=== PATIENT | female | born 1985 | race Caucasian/White ===

== ENCOUNTER 2016-09-25 11:24 | Emergency (ER) | payer OTHER ==
[2016-09-25 12:23] VITALS: TEMP 98.9
--- NOTE | 2016-09-25 12:25 | ED ---
General Adult HPI - General Chief complaint: Wound/Laceration Stated complaint: FALL, RIGHT HAND INJURY Time Seen by Provider: 09/25/16 12:12 Source: patient, RN notes reviewed Mode of arrival: ambulatory Limitations: no limitations - History of Present Illness Initial comments: Patient 31-year-old female who presents emergency room today with chief complaint of a fall that occurred earlier this morning. States she [place] jabbed into the webspace between the fourth and fifth digit. Sick cause laceration. States tetanus is up-to-date. She does admit to pain locally to the area and pain with certain movements of the fifth digit. She denies any other complaints or symptoms. Patient denies any recent fever, chills, shortness of breath, chest pain, back pain, abdominal pain, nausea or vomiting, numbness or tingling, dysuria or hematuria, constipation or diarrhea, headaches or visual changes, or any other complaints. - Related Data Home Medications Medication Instructions Recorded Confirmed Albuterol Nebulized [Ventolin 2.5 mg INHALATION RT-QID PRN 04/08/14 11/26/15 Nebulized] Budesonide-Formot 160-4.5 Mcg 2 puff INHALATION RT-BID 04/08/14 11/26/15 [Symbicort 160-4.5 Mcg Inhaler] Montelukast [Singulair] 10 mg PO DAILY 04/08/14 11/26/15 Omalizumab [Xolair] 300 mg SQ Q14D 04/08/14 11/26/15 Theophylline 12 Hour [Ajit-Dur] 200 mg PO BID 04/08/14 11/26/15 Albuterol Sulfate [Ventolin HFA] 1 - 2 puff INHALATION RT-Q6H PRN 04/09/1411/25 predniSONE 10 mg PO DAILY 03/27/15 11/26/15 Budesonide [Pulmicort] 2 hour INHALATION BID 11/26/15 11/26/15 Tiotropium [place] [Spiriva] 1 puff INHALATION DAILY 11/26/15 11/26/15 Previous Rx's Medication Instructions Recorded predniSONE 60 mg PO DAILY 5 Days 11/26/15 Cephalexin [Keflex] 500 mg PO Q12HR 5 Days 09/25/16 Allergies Allergy/AdvReac Type Severity Reaction Status Date / Time oxycodone HCl [From Percocet] AdvReac Mild Rapid Verified 09/25/16 13:36 Heart Rate Review of Systems ROS Statement: Those systems with pertinent positive or pertinent negative responses have been documented in the HPI. ROS Other: All systems not noted in ROS Statement are negative. Past Medical History Past Medical History: Asthma Additional Past Medical History / Comment(s): right ankle: twisted ankle 7 yrs ago, still hurting, sees Dr Gonzalez, needs physical therapy for ankle. Asthma since age 15 yrs. Started Xolair may 2013. OB history: she has had 1 and 1 History of Any Multi-Drug Resistant Organisms: None Reported Past Surgical History: Section Additional Past Surgical History / Comment(s): ovarian surgery Additional Past Anesthesia/Blood Transfusion Reaction / Comment(s): Back has been sore since her C-scetion, states from the spinal she had. Past Psychological History: No Psychological Hx Reported Smoking Status: Never smoker Past Alcohol Use History: None Reported Past Drug Use History: None Reported - Past Family History Father Family Medical History: Diabetes Mellitus Mother Family Medical History: Hypertension Additional Family Medical History / Comment(s): Asthma: cousins, aunts, neices, grandmother at 46yr of asthma. General Exam - General Exam Comments Initial Comments: General: The patient is awake and alert, in no distress, and does not appear acutely ill. Neck: The neck is supple, there is no tenderness or JVD. Cardiovascular: There is a regular rate and rhythm. No murmur, rub or gallop is appreciated. Respiratory: Lungs are clear to auscultation, respirations are non-labored, breath sounds are equal. No wheezes, stridor, rales, or rhonchi. Musculoskeletal: Shows good range of motion. Sensation intact. Pulses equal bilaterally 2+. Strength is 5/5. Neurological: A&O x 3. CN II-XII intact, There are no obvious motor or sensory deficits. Coordination appears grossly intact. Speech is normal. Skin: Patient does have a laceration in the webspace between fourth and fifth digit of the right hand. Linear laceration with no active bleeding. Approximately 1 cm. Psychiatric: Normal mood and affect. Limitations: no limitations Course Vital Signs 09/25/16 12:21 Temperature 98.9 F Pulse Rate 94 Respiratory 20 Rate Blood Pressure 124/73 O2 Sat by Pulse 99 Oximetry Procedures - Procedures Initial comment: 1 cm linear laceration in the webspace between fourth and fifth digit of the right hand.The skin was anesthetized with 1% lidocaine. The laceration was then cleansed with Betadine and irrigated with normal saline. The wound was inspected , and there was no evidence of injury to deep structures. No foreign body was noted in the wound. A total of 1 skin sutures were placed utilizing 5-0 nylon. Medical Decision Making - Medical Decision Making Patient's x-rays are negative for any acute abnormalities. Results were discussed with the patient. Patient's laceration cleaned and closed here in the emergency room. One stitch was placed to allow wound to drain as it is puncture wound. Patient will be placed on antibiotic to cover for puncture wound. Patient advised watch for any signs of infection. Advised return if any signs of infection or any other concerns. Disposition Clinical Impression: Laceration, Fall Disposition: HOME SELF-CARE Condition: Good Instructions: Laceration (ED) Additional Instructions: Please use antibiotic as prescribed watch for any signs of infection. Please return to emergency room in 7-10 days to have suture removed. Please return for any signs of infection or any other concerns. Prescriptions: Cephalexin [Keflex] 500 mg PO Q12HR 5 Days Time of Disposition: 13:47
--- NOTE | 2016-09-25 12:49 | XR ---
Bilateral hands HISTORY: Trauma and pain 3 views of both hands submitted on a total of 6 images Bone mineralization, joint spaces and alignment are maintained. Probable geode at the distal pole of the left scaphoid. IMPRESSION: No fracture or dislocation is evident.
[2016-09-25] MEDS ORDERED: IBUPROFEN 600 MG TAB PO STA (14:18)
[2016-09-25 14:31] VITALS: BP 102/57; PULSE 86; RESP 15
== END 2016-09-25 14:33 | disposition home or self-care (01) ==
LOC: EC 11:24
DX: S61.411A Laceration without foreign body of right hand, initial encounter (principal); W00.0XXA Fall on same level due to ice and snow, initial encounter; J45.909 Unspecified asthma, uncomplicated; Z79.899 Other long term (current) drug therapy; Z79.51 Long term (current) use of inhaled steroids; Z79.52 Long term (current) use of systemic steroids; Z88.5 Allergy status to narcotic agent
CPT/HCPCS: 12001; 99283

== ENCOUNTER → 2016-12-17 | Outpatient (CLI) | payer OTHER ==
--- NOTE | 2016-12-17 11:23 | USB ---
Reason for exam: follow-up at short interval from prior study. Physical Findings: Nurse Summary: BB on 6 o'clock, generalized lumpiness, BB area 0.5cm round mobile (nurse aida). US Breast RT Right breast ultrasound includes all four quadrants, the retroareolar region and axilla. Finding demonstrate no cystic or solid lesion seen. These results were verbally communicated with the patient and result sheet given to the patient on 12/17/16. ASSESSMENT: Negative, BI-RAD 1 RECOMMENDATION: Routine screening mammogram of both breasts at age 34. Manage patient on a clinical basis.
== END | disposition home or self-care (01) ==
LOC: RADMAMWWP 09:45
PROVIDERS: ATTEND Family Medicine
DX: N60.01 Solitary cyst of right breast (principal)

== ENCOUNTER → 2017-01-17 | Outpatient (CLI) | payer OTHER ==
--- NOTE | 2017-01-17 11:01 | US ---
EXAMINATION TYPE: US abdomen complete DATE OF EXAM: 01/17/2017 9:41 AM COMPARISON: Previous study dated 07/31/2015. CLINICAL HISTORY: R10.32 Left lower quadrant pain. Left sided pain EXAM MEASUREMENTS: Liver Length: 15.0 cm Gallbladder Wall: 0.2 cm CBD: 0.6 cm Spleen: 9.8 cm Right Kidney: 9.9 x 4.7 x 4.0 cm Left Kidney: 10.1 x 3.5 x 5.7 cm Pancreas: wnl Liver: wnl Gallbladder: wnl Evidence for sonographic Paulino's sign: no CBD: wnl Spleen: wnl Right Kidney: renal pelvis is prominent versus mild hydronephrosis Left Kidney: wnl Upper IVC: wnl Abd Aorta: wnl The pancreas is unremarkable. The liver is normal in size without evidence of biliary dilatation. The gallbladder is normal without evidence of cholelithiasis. The gallbladder wall measures 2 mm. The distal common hepatic duct measures 6 mm. The spleen is normal in size. There is an extrarenal pelvis of the right kidney. Left kidney is normal. Visualized portions of aorta and IVC are normal. IMPRESSION: NORMAL ABDOMINAL ULTRASOUND.
--- NOTE | 2017-01-17 11:37 | US ---
EXAMINATION TYPE: US pelvic complete DATE OF EXAM: 01/17/2017 9:25 AM COMPARISON: Previous study dated 10/19/2015. CLINICAL HISTORY: R10.32 Left lower quadrant pain. LLQ pain TECHNIQUE: Transabdominal (TA) Date of LMP: 12/29/2016 EXAM MEASUREMENTS: Uterus: 8.8 x 3.8 x 5.2 cm Endometrial Stripe: 0.6 cm Right Ovary: 2.3 x 1.5 x 1.7 cm Left Ovary: 3.2 x 2.7 x 3.0 cm 1. Uterus: Anteverted wnl 2. Endometrium: wnl 3. Right Ovary: wnl 4. Left Ovary: wnl 5. Bilateral Adnexa: Small amount of free fluid adjacent to left ovary 6. Posterior cul-de-sac: wnl Small amount of free fluid left adnexa, otherwise appeared wnl IMPRESSION: NORMAL PELVIC ULTRASOUND.
== END | disposition home or self-care (01) ==
LOC: RADUSWWP 08:35
PROVIDERS: ATTEND Family Medicine
DX: R10.32 Left lower quadrant pain (principal)
CPT/HCPCS: 76700; 76856

== ENCOUNTER → 2017-03-20 | Outpatient (CLI) | payer OTHER ==
[2017-03-20 12:50] LABS: Basophils % (A) 1 %; CH 30.1; CHCM 34.6; Eosinophils # (A) 0.1 k/uL (0-0.7); Eosinophils % (A) 1 %; HCT 38.9 % (34.0-46.0); HDW 2.59; HGB 13.5 gm/dL (11.4-16.0); Luc % (Auto) 2; Lymphocytes # (A) 1.3 k/uL (1.0-4.8); Lymphocytes % (A) 27 %; MCH 30.3 pg (25.0-35.0); MCHC 34.6 g/dL (31.0-37.0); MCV 87.4 fL (80.0-100.0); Mean Platelet Volume 7.6; Monocytes # (A) 0.2 k/uL (0-1.0); Monocytes % (A) 5 %; Neutrophils # (A) 3.2 k/uL (1.3-7.7); Neutrophils % (A) 65 %; RBC 4.45 m/uL (3.80-5.40); RDW 12.6 % (11.5-15.5)
== END | disposition home or self-care (01) ==
LOC: LABWHC1 12:09
PROVIDERS: ATTEND Internal Medicine Critical Care Medicine
DX: J45.909 Unspecified asthma, uncomplicated (principal)
CPT/HCPCS: 36415; 82785; 85008; 85025

== ENCOUNTER → 2017-03-28 | Outpatient (CLI) | payer OTHER ==
[2017-03-28 12:13] LABS: CH 30.2; CHCM 33.9; HCT 38.2 % (34.0-46.0); HDW 2.55; HGB 13.4 gm/dL (11.4-16.0); MCH 31.4 pg (25.0-35.0); MCHC 35.1 g/dL (31.0-37.0); MCV 89.4 fL (80.0-100.0); Mean Platelet Volume 7.3; RBC 4.27 m/uL (3.80-5.40); RDW 12.8 % (11.5-15.5); WBC 5.3 k/uL (3.8-10.6)
[2017-03-28 13:09] LABS: C Reactive Protein <5.0 mg/L (<10.0)
[2017-03-28 13:11] LABS: Rheumatoid Factor, Qnt <9 IU/mL (<12)
[2017-03-28 14:51] LABS: Erythrocyte Sedimentation Rate 2 mm/hr (0-20)
[2017-03-28 19:06] LABS: ANA w/Reflex to Titer NEGATIVE (NEGATIVE)
[2017-03-29 10:34] LABS: HLA B27 NEGATIVE; HLA B27 Comment SEEBELOW
[2017-04-01 13:56] LABS: Lyme IgG/IgM 0.2 Index; Lyme IgG/IgM Interp NEGATIVE (NEGATIVE)
== END | disposition home or self-care (01) ==
LOC: LABWHC1 11:34
PROVIDERS: ATTEND Orthopaedic Surgery
DX: M06.9 Rheumatoid arthritis, unspecified (principal)
CPT/HCPCS: 36415; 84443; 85027; 85652; 86038; 86060; 86140; 86431; 86618; 86812

== ENCOUNTER 2017-04-01 10:17 | Day surgery (SDC) | payer OTHER ==
[2017-03-31 08:29] VITALS: BMI 21.2
[~2017-04-01 10:17] MED LIST: ALBUTEROL NEB (CONC) 2.5 MG/0.5 ML INHALATION ONE; LACTATED RINGERS 1,000 ML IV ONE; LIDOCAINE 2% (PF) 20 MG/ML 10ML INHALATION ONE
[2017-04-01 10:37] VITALS: TEMP 97.5
[2017-04-01] MEDS: LACTATED RINGERS 1,000 ML IV SCH ×2 (10:41→11:41)
[2017-04-01] MEDS: LIDOCAINE 1% 20 ML VIAL (10MG/ML) FOR IV START INTRADERMA ONE ×2 (10:41→11:25)
[2017-04-01 10:43] LABS: Glucose,Whole Blood 84 mg/dL (75-99)
[2017-04-01] MEDS ORDERED: MIDAZOLAM 2 MG/2 ML VIAL ONE (11:43)
[2017-04-01] MEDS ORDERED: PROPOFOL 10 MG/ML 20 ML VIAL IV ONE (11:43)
[2017-04-01] MEDS ORDERED: LIDOCAINE 2% INJ 20 MG/ML INTRATRACH ONE (12:18)
--- NOTE | 2017-04-01 12:58 | P.PCN ---
Date of Procedure: 04/01/17 Preoperative Diagnosis: dyspnea, wheezing, stridor Postoperative Diagnosis: Tracheobronchomalacia, paradoxic vocal cord movements (dysfunctional), edematous aratenoids Procedure(s) Performed: Flexible bronchoscopy, bronchioloalveolar lavage of the lingula Implants: Anesthesia: MAC Surgeon: Karen Soto Estimated Blood Loss (ml): 0 Pathology: other Condition: stable Disposition: same day Indications for Procedure: dyspnea Operative Findings: This is a 32-year-old female patient has been having symptoms of chronic dyspnea and wheeze which has been essentially resistant to treatment for asthma. Note that recently the patient was given a high dose of systemic steroids without any improvement in her breathing. Upon further follow-up in the office, the patient was noted to have inspiratory and expiratory wheezing and stridor and for that reason I decided to proceed with a bronchoscopy to inspect the patient's upper and lower airway. Note that she was unable to perform a spirometry and flow volume loops in the office. The patient was brought into the bronchoscopy suite. She was quite anxious. Lidocaine was applied to the left nostril and the initial attempt was to use a pediatric bronchoscope to evaluate this patient's upper airway and vocal cord dysfunction. The patient became quite restless and initially she had to be given also some Diprivan to control her restlessness. I was able to insert the pediatric bronchoscope and I performed a quick upper airway evaluation. No anatomic obstruction was noted in the upper airway and no vocal cord paralysis was identified. At that point, I removed the pediatric bronchoscope and a full flexible without bronchoscope was inserted. He was obvious that as the patient was given higher doses of sedation, her stridor and the wheezing completely subsided. There about flexible bronchoscope was inserted to the right nostril was advanced upper airway. Examination of posterior oropharynx larynx and epiglottis and arytenoids true and false vocal cords was done. The arytenoids were quite swollen and prominent and slightly erythematous. The vocal cords were functional however it was interesting to find out that the vocal cords were adducting with expiratory maneuvers and this ultimately went away as the patient went into deeper level of sedation and the patient started having abduction with expiratory maneuvers. I was quite impressed by clearing of all these respiratory noises on auscultation as the patient was under sedation. Lidocaine was applied to the vocal cords and following that the bronchoscope was moved to the upper trachea. The subglottic trachea was within normal and there was no evidence of any stenosis. The membranous trachea was quite dynamic and there was near complete occlusion of the tracheal lumen by expiratory maneuvers and coughing. This was dynamic obstruction and the patient would fully expand and achieve a patent trachea with expiratory maneuvers. Some looseness for secretions were encountered throughout the airways and this was suctioned out. Airway special was completed. Trachea was in the midline and into a sharp. Bilateral mainstem bronchi were inspected. The visualized airways included the right upper lobe bronchus, right middle lobe bronchus, right lower lobe bronchus, left upper lobe bronchus and left lower lobe bronchus. The bronchial mucosa was slightly inflamed and erythematous. At that point the bronchoscope was moved to the lingular segment and the bronchioloalveolar lavage of the superior [place] segment was done and a total of 80 mL of fluid was infused and 20 mL was suctioned back. After performing adequate therapy care was suctioning the flexible bronchoscope was moved again to the upper airway specifically just above the vocal cords. I again watch this patient's breathing and vocal cord movement for another 5 minutes. The patient was adequately abducting her vocal cords with expiratory maneuvers. As the patient woke up from sedation she became obviously more stridorous and wheezy and short of breath. She was also getting a bit more agitated and thrashing and at that time the patient was given 2 mg of Versed by STE[employer] TABLE WORK[employer]. This again completely calm the patient down and recovered her apparent respiratory distress and wheezing and stridor. Strongly suspect paradoxic vocal cord function which could be related to underlying psychiatric disorders and anxiety. There is obvious component of tracheal bronchomalacia in addition. The bronchioloalveolar lavage was also completed to make sure there is no underlying respirator infection. Procedure was terminated and the patient was transferred recovery in stable condition. Description of Procedure:
[2017-04-01 13:23] VITALS: BP 109/71; PULSE 129; RESP 22
[2017-04-01 15:05] LABS: RBC, Body Fluid 8440 /uL
== END 2017-04-01 14:07 | disposition home or self-care (01) ==
LOC: ORWHC2ENDO 10:17
PROVIDERS: ATTEND Internal Medicine Critical Care Medicine
DX: J39.8 Other specified diseases of upper respiratory tract (principal); J38.3 Other diseases of vocal cords; J38.4 Edema of larynx; J45.51 Severe persistent asthma with (acute) exacerbation; J44.9 Chronic obstructive pulmonary disease, unspecified; Z79.51 Long term (current) use of inhaled steroids; Z79.52 Long term (current) use of systemic steroids; Z79.899 Other long term (current) drug therapy; Z88.5 Allergy status to narcotic agent
CPT/HCPCS: 94640; 81025; 88108; 88305; 89050; 87252; 87070; 87205; 87116; 87102; 87206; 31624; J2001 ×2; J2250; J2704; 87496; 87498; 87502; 87529; 87798

== ENCOUNTER 2017-08-04 08:27 | Emergency (ER) | payer OTHER ==
[2017-08-04] MEDS ORDERED: ONDANSETRON 4 MG/2 ML VIAL IVP STA (08:40)
[2017-08-04] MEDS ORDERED: KETOROLAC 30 MG/ML 1 ML VIAL IVP STA (08:40)
--- NOTE | 2017-08-04 08:51 | ED ---
General Adult HPI - General Chief complaint: Abdominal Pain Stated complaint: 4 WEEKS , BLOATING, ABDOMINAL PAIN Time Seen by Provider: 08/04/17 08:39 Source: patient, RN notes reviewed Mode of arrival: ambulatory Limitations: no limitations - History of Present Illness Initial comments: Patient is G2, P1, 32-year-old female who presents emergency room today with a chief complaint of left-sided abdominal pain over the last few days. Patient does admit that she's approximate 4 weeks by last menstrual cycle. Denies any vaginal bleeding or discharge. Does not that she's been expressing some pain in the left lower side of her abdomen off and on over the last week. Patient does admit that she's had increased bowel movements. No signs of blood. Denies any other complaints or symptoms currently. Patient denies any recent fever, chills, shortness of breath, chest pain, back pain, nausea or vomiting, numbness or tingling, dysuria or hematuria, constipation, headaches or visual changes, or any other complaints. - Related Data Home Medications Medication Instructions Recorded Confirmed Albuterol Nebulized [Ventolin 2.5 mg INHALATION RT-QID PRN 04/08/14 08/04/17 Nebulized] Budesonide-Formot 160-4.5 Mcg 2 puff INHALATION RT-BID 04/08/14 08/04/17 [Symbicort 160-4.5 Mcg Inhaler] Montelukast [Singulair] 10 mg PO HS 04/08/14 08/04/17 Theophylline 12 Hour [Ajit-Dur] 200 mg PO BID 04/08/14 08/04/17 Albuterol Sulfate [Ventolin HFA] 1 - 2 puff INHALATION RT-Q6H PRN 04/09/1408/04 Budesonide [Pulmicort] 1 applicate INHALATION RT-BID 11/26/15 08/04/17 Tiotropium [place] [Spiriva] 1 puff INHALATION RT-DAILY 11/26/15 08/04/17 predniSONE 10 mg PO DAILY 08/04/17 08/04/17 Allergies Allergy/AdvReac Type Severity Reaction Status Date / Time oxycodone HCl [From Percocet] AdvReac Mild Rapid Verified 08/04/17 09:10 Heart Rate Review of Systems ROS Statement: Those systems with pertinent positive or pertinent negative responses have been documented in the HPI. ROS Other: All systems not noted in ROS Statement are negative. Past Medical History Past Medical History: Asthma, GERD/Reflux Additional Past Medical History / Comment(s): chronic severe asthma,has a high heart rate at times,daily steroid,tendonitis right ankle-boot on History of Any Multi-Drug Resistant Organisms: None Reported Past Surgical History: Section Additional Past Surgical History / Comment(s): ovarian surgery Past Anesthesia/Blood Transfusion Reactions: Postoperative Nausea & Vomiting ( PONV) Additional Past Anesthesia/Blood Transfusion Reaction / Comment(s): no hx blood transfusion Past Psychological History: No Psychological Hx Reported Smoking Status: Never smoker Past Alcohol Use History: None Reported Past Drug Use History: None Reported - Past Family History Father Family Medical History: Diabetes Mellitus Mother Family Medical History: Diabetes Mellitus, Hypertension Additional Family Medical History / Comment(s): Asthma: cousins, aunts, neices, grandmother at 46yr of asthma. General Exam - General Exam Comments Initial Comments: General: The patient is awake and alert, in no distress, and does not appear acutely ill. Eye: Pupils are equal, round and reactive to light, extra-ocular movements are intact. No nystagmus. There is normal conjunctiva bilaterally. No signs of icterus. Ears, nose, mouth and throat: There are moist mucous membranes and no oral lesions. Neck: The neck is supple, there is no tenderness or JVD. Cardiovascular: There is a regular rate and rhythm. No murmur, rub or gallop is appreciated. Respiratory: Lungs are clear to auscultation, respirations are non-labored, breath sounds are equal. No wheezes, stridor, rales, or rhonchi. Gastrointestinal: Normal appearance abdomen. Normal bowel sounds. Soft on palpation. Patient does have mild tenderness left lower quadrant. No rebound or guarding. No CVA tenderness. Musculoskeletal: Normal ROM, no tenderness. Strength 5/5. Sensation intact. Pulses equal bilaterally 2+. Neurological: A&O x 3. CN II-XII intact, There are no obvious motor or sensory deficits. Coordination appears grossly intact. Speech is normal. Skin: Skin is warm and dry and no rashes or lesions are noted. Psychiatric: Cooperative, appropriate mood & affect, normal judgment. Limitations: no limitations Course Vital Signs 08/04/17 08/04/1717 08:29 10:10 11:58 Temperature 97.4 F L 98 F Pulse Rate 85 82 82 Respiratory 20 16 16 Rate Blood Pressure 116/74 103/61 111/64 O2 Sat by Pulse 99 100 96 Oximetry Medical Decision Making - Medical Decision Making Patient's ultrasound shows small cystic fluid collection in the mid uterus measuring 5.3 mm. Could represent a gestational sac of an early intrauterine at 5 weeks 2 days. No pole and at this time. Normal early , failed and sooner gestational sac nonvisualized ectopic differential by radiologist Dr. Ortiz. Patient's labs been reviewed unremarkable. Beta hCG is 5000 today. Case discussed in detail with attending physician Dr. Hyde. Patient reexamined at this time shows no signs of distress resting comfortably. Patient's abdomen soft nontender. She does have an appointment with her [facility] next week. Advised patient to call office for follow-up appointment over the next 2 days. Advised unable to obtain appointment to return to emergency room for repeat evaluation. Advised to have repeat beta hCG in 2 days. Advised return for any other concerns. Patient states understanding and is in agreement. - Lab Data Result diagrams: 08/04/17 09:12 08/04/17 09:12 Lab Results 08/04/17 08/04/17 08/04/17 Range/Units 09:12 09:12 09:12 WBC 4.9 (3.8-10.6) k/uL RBC 4.40 (3.80-5.40) m/uL Hgb 13.0 (11.4-16.0) gm/dL Hct 39.2 (34.0-46.0) % MCV 89.0 (80.0-100.0) fL MCH 29.4 (25.0-35.0) pg MCHC 33.1 (31.0-37.0) g/dL RDW 13.0 (11.5-15.5) % Plt Count 230 (150-450) k/uL Neutrophils % 68 % Lymphocytes % 23 % Monocytes % 5 % Eosinophils % 1 % Basophils % 0 % Neutrophils # 3.3 (1.3-7.7) k/uL Lymphocytes # 1.1 (1.0-4.8) k/uL Monocytes # 0.3 (0-1.0) k/uL Eosinophils # 0.1 (0-0.7) k/uL Basophils # 0.0 (0-0.2) k/uL Sodium 138 (137-145) mmol/L Potassium 4.2 (3.5-5.1) mmol/L Chloride 107 (98-107) mmol/L Carbon Dioxide 24 (22-30) mmol/L Anion Gap 7 mmol/L BUN 10 (7-17) mg/dL Creatinine 0.70 (0.52-1.04) mg/dL Est GFR (MDRD) Af Amer >60 (>60 ml/min/1.73 sqM) Est GFR (MDRD) Non-Af >60 (>60 ml/min/1.73 sqM) Glucose 83 (74-99) mg/dL Calcium 9.4 (8.4-10.2) mg/dL Total Bilirubin 0.5 (0.2-1.3) mg/dL AST 22 (14-36) U/L ALT 30 (9-52) U/L Alkaline Phosphatase 50 (38-126) U/L Total Protein 6.9 (6.3-8.2) g/dL Albumin 4.0 (3.5-5.0) g/dL HCG, Quant 5426.0 mIU/mL Urine Color Colorless Urine Appearance Cloudy H (Clear) Urine pH 7.0 (5.0-8.0) Ur Specific [place] 1.003 (1.001-1.035) Urine Protein Negative (Negative) Urine Glucose (UA) Negative (Negative) Urine Ketones Negative (Negative) Urine Blood Negative (Negative) Urine Nitrite Negative (Negative) Urine Bilirubin Negative (Negative) Urine Urobilinogen <2.0 (<2.0) mg/dL Ur Leukocyte Esterase Negative (Negative) Urine WBC <1 (0-5) /hpf Ur Squamous Epith Cells 4 (0-4) /hpf Urine Bacteria Occasional H (None) /hpf Disposition Clinical Impression: Threatened Disposition: HOME SELF-CARE Condition: Good Instructions: Threatened Miscarriage (ED) Additional Instructions: Please follow-up with [facility] over the next 2 days. Please return here to the emergency room if unable to follow-up in 2 days. Please have repeat beta hCG in 2 days. Please return to emergency room if any symptoms increase or worsen. Referrals: Glendy Padilla MD [Primary Care Provider] - 1-2 days Dian Ricci DO [Doctor of Osteopathic Medicine] - 1-2 days Time of Disposition: 12:12
[2017-08-04 09:43] LABS: Basophils % (A) 0 %; CH 29.5; CHCM 33.3; Eosinophils # (A) 0.1 k/uL (0-0.7); Eosinophils % (A) 1 %; HCT 39.2 % (34.0-46.0); HDW 2.32; Luc # (Auto) 0.08; Luc % (Auto) 2; Lymphocytes # (A) 1.1 k/uL (1.0-4.8); Lymphocytes % (A) 23 %; MCH 29.4 pg (25.0-35.0); MCHC 33.1 g/dL (31.0-37.0); Mean Platelet Volume 8.3; Monocytes # (A) 0.3 k/uL (0-1.0); Monocytes % (A) 5 %; Neutrophils # (A) 3.3 k/uL (1.3-7.7); Neutrophils % (A) 68 %; WBC 4.9 k/uL (3.8-10.6); WBC (Perox) 4.93
[2017-08-04 09:46] LABS: ALT 30 U/L (9-52); AST 22 U/L (14-36); Alkaline Phosphatase 50 U/L (38-126); Anion Gap 7 mmol/L; Blood Urea Nitrogen 10 mg/dL (7-17); Calcium 9.4 mg/dL (8.4-10.2); Carbon Dioxide 24 mmol/L (22-30); Chloride 107 mmol/L (98-107); Glucose 83 mg/dL (74-99); Non-African American GFR(MDRD) >60 (>60 ml/min/1.73 sqM); Potassium 4.2 mmol/L (3.5-5.1); Sodium 138 mmol/L (137-145); Total Bilirubin 0.5 mg/dL (0.2-1.3); Total Protein 6.9 g/dL (6.3-8.2)
[2017-08-04 09:55] LABS: Appearance,Urine Cloudy (Clear); Bacteria,Urine Occasional /hpf; Bilirubin,Urine Negative (Negative); Glucose,Urine (UA) Negative (Negative); Ketones,Urine Negative (Negative); Leukocyte Esterase,Urine Negative (Negative); Nitrite,Urine Negative (Negative); Particle Count 1411; Protein,Urine Negative (Negative); Specific Gravity,Urine 1.003 (1.001-1.035); Squamous Epithelial Cell,Urine 4 /hpf (0-4); UA Billing (MACRO vs. MICRO) MICRO; Urobilinogen,Urine <2.0 mg/dL (<2.0); WBC,Urine <1 /hpf (0-5)
[2017-08-04 10:11] VITALS: PULSE 82; RESP 16; TEMP 98
--- NOTE | 2017-08-04 11:39 | US ---
EXAMINATION TYPE: US OB <=14 wks transvag DATE OF EXAM: 08/04/2017 COMPARISON: NONE CLINICAL HISTORY: 32-year-old female Pain. Bloating, left pelvic pain, 2, para 1, history of Date of LMP: 07/01/2017 Beta HcG (if available): 5,426.0 EXAM PERFORMED: Transvaginal (TV) and Transabdominal (TA) FINDINGS: EXAM MEASUREMENTS: GESTATIONAL AGE / DATING Physician Established: Not established yet Dates by LMP: (4 weeks/6 days) EDC: 04/07/2018 Dates by First Scan: This is 1st scan Dates by Current Scan for: By gestational sac measurement ( 5 weeks/0 days) EDC: 04/06/2018 MATERNAL ANATOMY Uterus: 7.7 x 4.0 x 5.5cm Right Ovary: 3.0 x 2.4 x 3.6cm Left Ovary: 2.2 x 1.3 x 1.7cm Post CDS / Adnexa: free fluid in posterior cul de sac Presence of free fluid: yes, mild to moderate Presence of corpus luteal cyst: right ovary: 2.0 x 1.6 x 1.5cm corpus luteum Presence of subchorionic bleed: no GESTATION / SURVEY MSD: 5.3 mm (5 weeks/0 days) IUP: No pole or yolk sac seen at this time EDUCATIONAL SPEECH LANGUAGE CLINICIAN NOTES: No pole or yolk sac seen at this time, gestational sac like structure seen m easuring 0.5cm 5 weeks 0 days, right ovary: 2.0 x 1.6 x 1.5cm hypoechoic area, possible corpus luteum , free fluid in posterior cul de sac. IMPRESSION: Small cystic fluid collection in the mid uterus measuring 5.3 mm. If this represents a gestational sa c of an early intrauterine , this would place the at 5 weeks 0 days. However, as a yolk sac and pole are not seen at this time, differential considerations include normal early , failed , and pseudogestational sac of a nonvisualized ectopic . Recommend serial beta hCG and ultrasound follow-up to ensure the appearance of a normal pole wi th cardiac activity.
[2017-08-04 11:59] VITALS: BP 111/64
== END 2017-08-04 12:56 | disposition home or self-care (01) ==
LOC: EC 08:27
DX: O20.0 Threatened abortion (principal); O99.89 Other specified diseases and conditions complicating pregnancy, childbirth and the puerperium; N85.8 Other specified noninflammatory disorders of uterus; O99.511 Diseases of the respiratory system complicating pregnancy, first trimester; J45.909 Unspecified asthma, uncomplicated; Z79.51 Long term (current) use of inhaled steroids; Z79.52 Long term (current) use of systemic steroids; Z79.899 Other long term (current) drug therapy; Z88.5 Allergy status to narcotic agent; Z87.39 Personal history of other diseases of the musculoskeletal system and connective tissue; Z98.890 Other specified postprocedural states; Z3A.01 Less than 8 weeks gestation of pregnancy; Z53.8 Procedure and treatment not carried out for other reasons
CPT/HCPCS: 36415; 76801; 76817; 80053; 81001; 84702; 85025; 87077; 87086; 87186; 99284

== ENCOUNTER 2017-11-03 14:49 | Emergency (ER) | payer OTHER ==
[2017-11-03 16:33] LABS: Basophils % (A) 0 %; Eosinophils # (A) 0.3 k/uL (0-0.7); Eosinophils % (A) 3 %; HCT 34.6 % (34.0-46.0); Lymphocytes # (A) 1.4 k/uL (1.0-4.8); Lymphocytes % (A) 17 %; MCH 30.3 pg (25.0-35.0); MCHC 34.7 g/dL (31.0-37.0); MCV 87.3 fL (80.0-100.0); Mean Platelet Volume 7.5; Monocytes # (A) 0.3 k/uL (0-1.0); Monocytes % (A) 4 %; Neutrophils # (A) 5.9 k/uL (1.3-7.7); Neutrophils % (A) 74 %; Platelet Count 211 k/uL (150-450); RBC 3.96 m/uL (3.80-5.40); RDW 13.6 % (11.5-15.5); WBC 7.9 k/uL (3.8-10.6)
[2017-11-03] MEDS ORDERED: SODIUM CHLORIDE 0.9% 1,000 ML IV STA (16:35)
[2017-11-03 16:41] LABS: ALT 45 U/L (9-52); AST 33 U/L (14-36); Albumin 3.4 g/dL (3.5-5.0); Alkaline Phosphatase 53 U/L (38-126); Amylase 61 U/L (30-110); Anion Gap 8 mmol/L; Blood Urea Nitrogen 10 mg/dL (7-17); Calcium 9.2 mg/dL (8.4-10.2); Carbon Dioxide 23 mmol/L (22-30); Chloride 105 mmol/L (98-107); Glucose 82 mg/dL (74-99); Lipase 94 U/L (23-300); Potassium 4.1 mmol/L (3.5-5.1); Sodium 136 mmol/L (137-145); Total Bilirubin 0.3 mg/dL (0.2-1.3); Total Protein 6.2 g/dL (6.3-8.2)
--- NOTE | 2017-11-03 16:58 | ED ---
General Adult HPI - General Chief complaint: Nausea/Vomiting/Diarrhea Stated complaint: 18 weeks /Vomitng Time Seen by Provider: 11/03/17 16:30 Source: patient, RN notes reviewed Mode of arrival: ambulatory Limitations: no limitations - History of Present Illness Initial comments: Patient 32-year-old female who presents emergency room today with chief complaint of symptoms of nausea vomiting over the last 2 days. Patient does admit that she is 18 weeks by ultrasound. Patient states that the has been some abdominal cramping. She denies any vaginal bleeding or discharge. Patient states is having a difficult time keeping down fluids earlier today. Patient also admits to history of asthma. States that she has felt a little tightness in her chest after the nausea vomiting. Patient denies any other complaints or symptoms currently. Patient denies any recent fever, chills, shortness of breath, chest pain, back pain, numbness or tingling, dysuria or hematuria, constipation or diarrhea, headaches or visual changes, or any other complaints. - Related Data Home Medications Medication Instructions Recorded Confirmed Albuterol Nebulized [Ventolin 2.5 mg INHALATION RT-QID PRN 04/08/14 11/03/17 Nebulized] Budesonide-Formot 160-4.5 Mcg 2 puff INHALATION RT-BID 04/08/14 11/03/17 [Symbicort 160-4.5 Mcg Inhaler] Theophylline 12 Hour [Ajit-Dur] 200 mg PO DIRECTED 04/08/14 11/03/17 Albuterol Sulfate [Ventolin HFA] 1 - 2 puff INHALATION RT-Q6H PRN 04/09/1411/03 Budesonide [Pulmicort] 0.5 mg INHALATION DIRECTED 11/26/15 11/03/17 Tiotropium Easley [Spiriva] 1 puff INHALATION DIRECTED 11/26/15 11/03/17 Montelukast [Singulair] 10 mg PO DIRECTED 09/03/17 11/03/17 Previous Rx's Medication Instructions Recorded Metoclopramide HCl [Reglan] 5 mg PO Q6H PRN #15 tablet 11/03/17 Allergies Allergy/AdvReac Type Severity Reaction Status Date / Time oxycodone HCl [From Percocet] AdvReac Mild Rapid Verified 11/03/17 16:44 Heart Rate Review of Systems ROS Statement: Those systems with pertinent positive or pertinent negative responses have been documented in the HPI. ROS Other: All systems not noted in ROS Statement are negative. Past Medical History Past Medical History: Asthma, GERD/Reflux Additional Past Medical History / Comment(s): chronic severe asthma,has a high heart rate at times,daily steroid,tendonitis right ankle-boot on History of Any Multi-Drug Resistant Organisms: None Reported Past Surgical History: Section Additional Past Surgical History / Comment(s): ovarian surgery Past Anesthesia/Blood Transfusion Reactions: Postoperative Nausea & Vomiting ( PONV) Additional Past Anesthesia/Blood Transfusion Reaction / Comment(s): no hx blood transfusion Past Psychological History: No Psychological Hx Reported Smoking Status: Never smoker Past Alcohol Use History: None Reported Past Drug Use History: None Reported - Past Family History Father Family Medical History: Diabetes Mellitus Mother Family Medical History: Diabetes Mellitus, Hypertension Additional Family Medical History / Comment(s): Asthma: cousins, aunts, neices, grandmother at 46yr of asthma. General Exam - General Exam Comments Initial Comments: General: The patient is awake and alert, in no distress, and does not appear acutely ill. Eye: Pupils are equal, round and reactive to light, extra-ocular movements are intact. No nystagmus. There is normal conjunctiva bilaterally. No signs of icterus. Ears, nose, mouth and throat: There are moist mucous membranes and no oral lesions. Neck: The neck is supple, there is no tenderness or JVD. Cardiovascular: There is a regular rate and rhythm. No murmur, rub or gallop is appreciated. Respiratory: Lungs are clear to auscultation, respirations are non-labored, breath sounds are equal. No wheezes, stridor, rales, or rhonchi. Gastrointestinal: Soft, non-distended, non-tender abdomen without masses or organomegaly noted. There is no rebound or guarding present. No CVA tenderness. Musculoskeletal: Normal ROM, no tenderness. Strength 5/5. Sensation intact. Pulses equal bilaterally 2+. Neurological: A&O x 3. CN II-XII intact, There are no obvious motor or sensory deficits. Coordination appears grossly intact. Speech is normal. Skin: Skin is warm and dry and no rashes or lesions are noted. Psychiatric: Cooperative, appropriate mood & affect, normal judgment. Limitations: no limitations Course Vital Signs 11/03/17 11/03/17 15:28 18:08 Temperature 98.9 F 97.9 F Pulse Rate 100 82 Respiratory 18 16 Rate Blood Pressure 116/63 94/53 O2 Sat by Pulse 99 99 Oximetry Medical Decision Making - Medical Decision Making Patient's vital stable here in emergency room. Patient's heart tones were obtained by OB nurse in the 140s. Patient denies any vaginal bleeding or discharge. She admits to some nausea vomiting started yesterday. Patient's labs been reviewed are unremarkable. Patient will call us or the emergency room and nausea medication and is feeling much better at this time. Patient will be discharged home with nausea medication. She does have a follow-up appointment with her OB in 2 days. Advised to return to the emergency room if any symptoms increase or worsen or for any other concerns. Patient states understanding and is in agreement. Patient was given a liter bolus here in the emergency room was feeling better. Patient's repeat blood pressure prior to discharge was 94/53. Patient denies any lightheadedness or dizziness. She had been up to the bathroom feeling well. Patient was ambulated by nursing staff. The emergency room blood pressure was rechecked which show improvement systolic 107 She denied any lightheadedness or dizziness and felt cold will be discharged home. Patient declined having any further IV fluids at this time. States feels couple followed up with OB. - Lab Data Result diagrams: 11/03/17 16:23 11/03/17 16:23 Lab Results 11/03/17 11/03/17 11/03/17 Range/Units 16:23 16:23 17:05 WBC 7.9 (3.8-10.6) k/uL RBC 3.96 (3.80-5.40) m/uL Hgb 12.0 (11.4-16.0) gm/dL Hct 34.6 (34.0-46.0) % MCV 87.3 (80.0-100.0) fL MCH 30.3 (25.0-35.0) pg MCHC 34.7 (31.0-37.0) g/dL RDW 13.6 (11.5-15.5) % Plt Count 211 (150-450) k/uL Neutrophils % 74 % Lymphocytes % 17 % Monocytes % 4 % Eosinophils % 3 % Basophils % 0 % Neutrophils # 5.9 (1.3-7.7) k/uL Lymphocytes # 1.4 (1.0-4.8) k/uL Monocytes # 0.3 (0-1.0) k/uL Eosinophils # 0.3 (0-0.7) k/uL Basophils # 0.0 (0-0.2) k/uL Sodium 136 L (137-145) mmol/L Potassium 4.1 (3.5-5.1) mmol/L Chloride 105 (98-107) mmol/L Carbon Dioxide 23 (22-30) mmol/L Anion Gap 8 mmol/L BUN 10 (7-17) mg/dL Creatinine 0.67 (0.52-1.04) mg/dL Est GFR (MDRD) Af Amer >60 (>60 ml/min/1.73 sqM) Est GFR (MDRD) Non-Af >60 (>60 ml/min/1.73 sqM) Glucose 82 (74-99) mg/dL Calcium 9.2 (8.4-10.2) mg/dL Total Bilirubin 0.3 (0.2-1.3) mg/dL AST 33 (14-36) U/L ALT 45 (9-52) U/L Alkaline Phosphatase 53 (38-126) U/L Total Protein 6.2 L (6.3-8.2) g/dL Albumin 3.4 L (3.5-5.0) g/dL Amylase 61 (30-110) U/L Lipase 94 (23-300) U/L Urine Color Yellow Urine Appearance Turbid H (Clear) Urine pH 7.0 (5.0-8.0) Ur Specific Decker 1.015 (1.001-1.035) Urine Protein Negative (Negative) Urine Glucose (UA) Negative (Negative) Urine Ketones Negative (Negative) Urine Blood Negative (Negative) Urine Nitrite Negative (Negative) Urine Bilirubin Negative (Negative) Urine Urobilinogen <2.0 (<2.0) mg/dL Ur Leukocyte Esterase Trace H (Negative) Ur Squamous Epith Cells 7 H (0-4) /hpf Amorphous Sediment Rare H (None) /hpf Disposition Clinical Impression: Hyperemesis gravidarum Disposition: HOME SELF-CARE Condition: Good Instructions: Hyperemesis Gravidarum (ED) Additional Instructions: Please use nausea medication as prescribed. Please follow-up with your OB with her scheduled appointment in 2 days. Please return to emergency room if any symptoms increase or worsen or for any other concerns. Prescriptions: Metoclopramide HCl [Reglan] 5 mg PO Q6H PRN #15 tablet PRN Reason: Nausea Referrals: Karen Soto MD [Primary Care Provider] - 1-2 days Dian Ricci DO [Doctor of Osteopathic Medicine] - 1-2 days Time of Disposition: 18:34
[2017-11-03 17:28] LABS: Amorphous Sediment,Urine Rare /hpf; Appearance,Urine Turbid (Clear); Bilirubin,Urine Negative (Negative); Blood,Urine Negative (Negative); Color,Urine Yellow; Glucose,Urine (UA) Negative (Negative); Ketones,Urine Negative (Negative); Leukocyte Esterase,Urine Trace (Negative); Nitrite,Urine Negative (Negative); Protein,Urine Negative (Negative); Specific Gravity,Urine 1.015 (1.001-1.035); Squamous Epithelial Cell,Urine 7 /hpf (0-4); Urobilinogen,Urine <2.0 mg/dL (<2.0)
[2017-11-03] MEDS ORDERED: METOCLOPRAMIDE 5 MG/ML 2 ML VIAL IVP STA (18:03)
[2017-11-03 18:09] VITALS: PULSE 82; RESP 16; TEMP 97.9
[2017-11-03 19:25] VITALS: BP 107/59
== END 2017-11-03 19:26 | disposition home or self-care (01) ==
LOC: EC 14:49
DX: O21.0 Mild hyperemesis gravidarum (principal); O99.89 Other specified diseases and conditions complicating pregnancy, childbirth and the puerperium; R10.9 Unspecified abdominal pain; O99.512 Diseases of the respiratory system complicating pregnancy, second trimester; J45.909 Unspecified asthma, uncomplicated; Z3A.18 18 weeks gestation of pregnancy; Z79.51 Long term (current) use of inhaled steroids; Z79.899 Other long term (current) drug therapy; Z88.5 Allergy status to narcotic agent
CPT/HCPCS: 36415; 80053; 82150; 83690; 85025; 81001; 99284; 96374; 96361 ×2; J2765

== ENCOUNTER 2018-01-26 09:31 | Outpatient (CLI) | payer OTHER ==
[2018-01-26 09:43] VITALS: BP 111/62; RESP 18; TEMP 97.5
[2018-01-26 10:17] LABS: Amorphous Sediment,Urine Rare /hpf; Appearance,Urine Cloudy (Clear); Bacteria,Urine Rare /hpf; Bilirubin,Urine Negative (Negative); Blood,Urine Negative (Negative); Color,Urine Yellow; Glucose,Urine (UA) Negative (Negative); Ketones,Urine Negative (Negative); Leukocyte Esterase,Urine Negative (Negative); Mucus,Urine Occasional /hpf; Nitrite,Urine Negative (Negative); Protein,Urine Negative (Negative); Specific Gravity,Urine 1.011 (1.001-1.035); Squamous Epithelial Cell,Urine 1 /hpf (0-4); Urobilinogen,Urine <2.0 mg/dL (<2.0); WBC,Urine 2 /hpf (0-5)
[2018-01-26] MEDS ORDERED: ALBUTEROL NEBULIZED 2.5 MG/3 ML INHALATION STA (10:23)
[2018-02-03 20:18] VITALS: PULSE 86
--- NOTE | 2018-02-03 20:18 | P.MSEPDOC ---
Presenting Problems - Arrival Data Date of Arrival on Unit: 01/26/18 Time of Arrival on Unit: 08:45 Mode of Transport: Wheelchair - Complaint OB-Reason for Admission/Chief Complaint: Acute Nausea/Vomiting, Pain Comment: cramping with nausea and emesis x 3 days, hx of chronic/severe asthma Medical History - Information : 2 Para: 1 Term: 1 : 0 Abortions: Spontaneous or Elective: 0 Number of Living Children: 1 - Gestational Age Gestational Age by NUBIA (wks/days): 30 Weeks and 2 Days - History Complications: Prior Comment: x 1 for severe asthma history Review of Systems - Review of Systems Constitutional: No problems Breast: No problems ENT: No problems Cardiovascular: No problems Respiratory: Wheezing Gastrointestinal: Pain Genitourinary: No problems Musculoskeletal: No problems Neurological: No problems Skin: No problems Vital Signs - Temperature Temperature: 97.5 F Temperature Source: Temporal Artery Scan - Pulse Right Sitting Brachial Pulse Rate: 86 Pulse Assessment Method: Automatic Cuff - Respirations Respiratory Rate: 18 Oxygen Delivery Method: Room Air - Blood Pressure Right Arm Sitting Blood Pressure: 111/62 Blood Pressure Mean: 78 Blood Pressure Source: Automatic Cuff Medical Screen Scoring (Pre) - Cervical Exam Dilation: Exam Deferred Effacement: Exam Deferred - Uterine Contractions Frequency: > 5 minutes apart = 1 Duration: N/A Intensity: N/A - Maternal Vital Signs Maternal Temperature: N/A Maternal Blood Pressure: N/A Signs of Preeclampsia: N/A Maternal Respirations: N/A - Pain Assessment Pain Location and Character: Abdomen Pain Scale Used: Numeric (1 - 10) Pain Intensity: 10 Pain Management Goal: 3 Pain Description: Cramping Pain Radiation Location: none Pain Frequency: Intermittent Pain Duration: 3 Pain Duration Units: Days Pain Behavior: None Exhibited - Maternal Trauma Maternal Trauma: N/A - Assessment Baseline FHR: 135 Heart Rate - NICHD Category: Category I (Normal) = 0 NST: Reactive Position: N/A Station: N/A - Total Score Total Score (Pre): 1 - Level of Risk Level of Risk: Low (0-5) Medical Screen Scoring (Post) - Cervical Exam Dilation: 0 cm = 0 Effacement: More than 50% = 2 Membranes: Intact - Uterine Contractions Frequency: N/A Duration: N/A Intensity: N/A - Maternal Vital Signs Maternal Temperature: N/A Maternal Blood Pressure: Systolic >139 = 2 Signs of Preeclampsia: N/A Maternal Respirations: N/A - Pain Assessment Pain Location and Character: Abdomen Pain Scale Used: Numeric (1 - 10) - Maternal Trauma Maternal Trauma: N/A - Assessment Heart Rate: 130 Heart Rate - NICHD Category: Category I (Normal) = 0 NST: Reactive Position: N/A Station: N/A - Total Score Total Score (Post): 4 - Post Treatment Level of Risk Post Treatment Level of Risk: Low (0-5) Physician Notification (Post) - Physician Notified Physician Notified Date: 01/26/18 Physician Notified Time: 11:25 Physician/Practitioner Notified:: Dr. Ricci Spoke With: Dr. Ricci New Order Received: Yes - Notification Comment Comment: Spk c\Dr. Ricci, updated on patient constipation report, pain, respiratory tx completed. States to d/c pt home, provide reedu on increasing water intake, apple juice, dried apricots and take stool softners. Disposition - Disposition OB Disposition: Triage, Discharge to home, Written follow up instructions reviewed Discharge Date: 01/26/18 Discharge Time: 11:30 I agree with the RN Medical Screening Exam: Yes Risk & Benefit of care provided described in d/c instruction: Yes Diagnosis: SEVERE PERSISTENT ASTHMA, UNCOMPLICATED
== END 2018-01-26 11:25 | disposition home or self-care (01) ==
LOC: FBPOP 09:31
PROVIDERS: ATTEND Obstetrics & Gynecology
DX: O26.893 Other specified pregnancy related conditions, third trimester (principal); J45.50 Severe persistent asthma, uncomplicated; O21.2 Late vomiting of pregnancy; R10.9 Unspecified abdominal pain; Z3A.30 30 weeks gestation of pregnancy
CPT/HCPCS: 59025; 94640; 81001; 87086; G0463; 99213

== ENCOUNTER 2018-02-25 14:29 | Outpatient (CLI) | payer OTHER ==
[2018-02-25 14:58] VITALS: BP 109/69; PULSE 103; RESP 20; TEMP 98.1
[2018-02-25] MEDS: LACTATED RINGERS 1,000 ML IV SCH ×2 (15:37→16:09)
[2018-02-25 15:51] LABS: Amorphous Sediment,Urine Rare /hpf; Appearance,Urine Cloudy (Clear); Bacteria,Urine Many /hpf; Bilirubin,Urine Negative (Negative); Blood,Urine Negative (Negative); Color,Urine Yellow; Glucose,Urine (UA) Negative (Negative); Hyaline Casts,Urine 7 /lpf (0-2); Ketones,Urine 4+ (Negative); Leukocyte Esterase,Urine Large (Negative); Mucus,Urine Many /hpf; Nitrite,Urine Negative (Negative); PH, Urine 7.5 (5.0-8.0); Protein,Urine 1+ (Negative); RBC,Urine 4 /hpf (0-5); Specific Gravity,Urine 1.019 (1.001-1.035); Squamous Epithelial Cell,Urine 5 /hpf (0-4); WBC,Urine 79 /hpf (0-5)
[2018-02-25] MEDS ORDERED: ONDANSETRON 4 MG/2 ML VIAL IVP STA (16:32)
--- NOTE | 2018-02-25 19:28 | P.MSEPDOC ---
Presenting Problems - Arrival Data Date of Arrival on Unit: 02/25/18 Time of Arrival on Unit: 14:35 Mode of Transport: Wheelchair - Complaint OB-Reason for Admission/Chief Complaint: Acute Nausea/Vomiting Comment: pt arrived c/o nausea and vomitting and diarrhea with abd cramping since last night Medical History - Information : 2 Para: 1 Term: 1 : 0 Abortions: Spontaneous or Elective: 0 Number of Living Children: 1 - Gestational Age Gestational Age by NUBIA (wks/days): 34 Weeks and 4 Days - History Complications: Prior Review of Systems - Review of Systems Constitutional: No problems Breast: No problems ENT: No problems Cardiovascular: No problems Respiratory: No problems Gastrointestinal: Diarrhea Genitourinary: No problems Musculoskeletal: No problems Neurological: No problems Skin: No problems Vital Signs - Temperature Temperature: 98.1 F Temperature Source: Oral - Pulse Right Brachial Pulse Rate: 103 Pulse Assessment Method: Automatic Cuff - Respirations Respiratory Rate: 20 Oxygen Delivery Method: Room Air O2 Sat by Pulse Oximetry: 97 - Blood Pressure Right Arm Blood Pressure: 109/69 Blood Pressure Mean: 82 Blood Pressure Source: Automatic Cuff Medical Screen Scoring (Pre) - Cervical Exam Dilation: 0 cm = 0 Membranes: Intact - Uterine Contractions Frequency: > 5 minutes apart = 1 Duration: > 40 seconds = 2 Intensity: N/A - Maternal Vital Signs Maternal Temperature: N/A Maternal Blood Pressure: N/A Signs of Preeclampsia: Nausea/Vomiting = 1 Maternal Respirations: N/A - Pain Assessment Pain Location and Character: Abdomen Pain Scale Used: Numeric (1 - 10) Pain Intensity: 9 Pain Management Goal: 1 Pain Description: Cramping Pain Radiation Location: n/a Pain Frequency: Constant Pain Duration: 20 Pain Duration Units: Minutes Pain Behavior: Vocalization Pain Aggravating Factors: Activity Non-Pharmacological Interventions: Environmental Control, Relaxation Technique - Maternal Trauma Maternal Trauma: N/A - Assessment Baseline FHR: 150 Heart Rate - NICHD Category: Category I (Normal) = 0 NST: Reactive Position: N/A Station: N/A - Total Score Total Score (Pre): 4 Medical Screen Scoring (Post) - Post Treatment Level of Risk Post Treatment Level of Risk: Low (0-5) Physician Notification (Post) - Physician Notified Physician Notified Date: 02/25/18 Physician Notified Time: 14:45 Spoke With: dr sotero Ordonez Order Received: Yes - Notification Comment Comment: may discharge to home Disposition - Disposition OB Disposition: Discharge to home Discharge Date: 02/25/18 Discharge Time: 17:40 I agree with the RN Medical Screening Exam: Yes Risk & Benefit of care provided described in d/c instruction: Yes Diagnosis: VOMITING OF , UNSPECIFIED
== END 2018-02-25 17:50 | disposition home or self-care (01) ==
LOC: FBPOP 14:29
PROVIDERS: ATTEND Obstetrics & Gynecology
DX: O21.2 Late vomiting of pregnancy (principal); O26.893 Other specified pregnancy related conditions, third trimester; R19.7 Diarrhea, unspecified; R10.9 Unspecified abdominal pain; Z3A.34 34 weeks gestation of pregnancy
CPT/HCPCS: 59025; 96360; 96361; 96375; 81001; G0463; J2405; 99214

== ENCOUNTER 2018-03-15 12:29 | Inpatient (IN) | payer OTHER ==
[2018-03-15] MEDS ORDERED: ALBUTEROL NEBULIZED 2.5 MG/3 ML INHALATION STA (12:49)
[2018-03-15] MEDS ORDERED: LACTATED RINGERS 1,000 ML IV ONE (13:00)
[2018-03-15] MEDS ORDERED: BUTORPHANOL 1 MG/ML 1 ML VIAL IV PRN (14:25)
[2018-03-15 14:34] LABS: Basophils % (A) 0 %; Eosinophils # (A) 0.1 k/uL (0-0.7); Eosinophils % (A) 1 %; HCT 29.8 % (34.0-46.0); HGB 10.2 gm/dL (11.4-16.0); Lymphocytes # (A) 0.9 k/uL (1.0-4.8); Lymphocytes % (A) 14 %; MCH 29.1 pg (25.0-35.0); MCHC 34.2 g/dL (31.0-37.0); MCV 85.3 fL (80.0-100.0); Mean Platelet Volume 8.2; Monocytes # (A) 0.4 k/uL (0-1.0); Monocytes % (A) 6 %; Neutrophils # (A) 5.3 k/uL (1.3-7.7); Neutrophils % (A) 78 %; Platelet Count 169 k/uL (150-450); RBC 3.49 m/uL (3.80-5.40); RDW 13.8 % (11.5-15.5); WBC 6.8 k/uL (3.8-10.6)
--- NOTE | 2018-03-15 14:44 | P.HPOB ---
History of Present Illness H&P Date: 03/15/18 Chief Complaint: Low back pain and asthma exacerbation This patient is a 32-year-old 2 para 1 female estimated date of confinement 04/07/2018 estimated gestational age 36-5/7 weeks who presents to labor and delivery with complaints of worsening back pain over the last 24 hours. Patient also has known severe asthma. Patient's care is per Dr. Ricci appears to be complicated by intermittent exacerbations of asthma which has been followed by Dr. Jenkins. Patient is scheduled for repeat C- section after 39 weeks due to previous section for asthma. Patient's pain is localized to the central mid lower back and constant in nature. She denies any vaginal bleeding. Review of Systems Respiratory: Reports dyspnea Genitourinary: Reports Menstruation: Reports amenorrhea Past Medical History Past Medical History: Asthma, GERD/Reflux Additional Past Medical History / Comment(s): chronic severe asthma,has a high heart rate at times,daily steroid History of Any Multi-Drug Resistant Organisms: None Reported Past Surgical History: Section Additional Past Surgical History / Comment(s): ovarian surgery Past Anesthesia/Blood Transfusion Reactions: Postoperative Nausea & Vomiting ( PONV) Additional Past Anesthesia/Blood Transfusion Reaction / Comment(s): no hx blood transfusion Smoking Status: Never smoker Past Alcohol Use History: None Reported Past Drug Use History: None Reported - Past Family History Father Family Medical History: Diabetes Mellitus Mother Family Medical History: Diabetes Mellitus, Hypertension Additional Family Medical History / Comment(s): Asthma: cousins, aunts, neices, grandmother at 46yr of asthma. Medications and Allergies Home Medications Medication Instructions Recorded Confirmed Type Albuterol Nebulized [Ventolin 2.5 mg INHALATION RT-QID PRN 04/08/14 03/15/18 History Nebulized] Budesonide-Formot 160-4.5 Mcg 2 puff INHALATION RT-BID 04/08/14 03/15/18 History [Symbicort 160-4.5 Mcg Inhaler] Albuterol Sulfate [Ventolin HFA] 1 - 2 puff INHALATION RT-Q6H PRN 04/09/1403/15 History Allergies Allergy/AdvReac Type Severity Reaction Status Date / Time oxycodone HCl [From Percocet] AdvReac Mild Rapid Verified 03/15/18 12:34 Heart Rate Exam Vital Signs Temp Pulse Pulse Resp BP Pulse Ox 03/15/18 13:08 104 H 03/15/18 12:57 100 03/15/18 12:47 99.2 F 106 H 18 119/69 98 Intake and Output 03/14/18 03/15/18 03/15/18 22:59 06:59 14:59 Other: Weight 78.018 kg - OBG Physical Exam Abdomen: bowel sounds normal, no diffuse tenderness, no bruit present, no guarding noted, no hepatomegaly, no splenomegaly, no mass Vulva: both: normal Vagina: normal moisture, no discharge Cervix: no lesion (Cervix is 1 cm thick and -3 station.), no discharge Uterus: enlarged Results blood type is a positive, rubella immune, HIV nonreactive, RPR nonreactive. Patient is a normal 1 hour glucose testing. Assessment and Plan Assessment: This is a pleasant 32-year-old 2 para 1 female 36-5/7 weeks gestation admitted with low back pain and asthma exacerbation. Multiple exam shows no change in her cervix and it does not appear she's in labor. heart tones are reassuring. Patient however does feel significant low back pain is constant in nature. Plan at this time is to admit for observation, complete obstetrical ultrasound and also bilateral renal ultrasound to rule out kidney stones. Also check a CBC and urinalysis at this time. I'll get a pulmonary consultation for management of her asthma. I had a long discussion with the patient and her family about her discomfort and asthma. They understand we will not proceed with a delivery at this time unless she actually goes into labor due to concerns for lung immaturity. If she were to go into labor then we will proceed with delivery by section as planned. (1) Third trimester Current Visit: Yes Status: Acute Code(s): Z34.93 - ENCNTR FOR SUPRVSN OF NORMAL PREG, UNSP, THIRD TRIMESTER SNOMED Code(s): 88408342 (2) Back pain affecting in third trimester Current Visit: Yes Status: Acute Code(s): O99.89 - OTH DISEASES AND CONDITIONS COMPL PREG/CHLDBRTH; M54.9 - DORSALGIA, UNSPECIFIED SNOMED Code(s) : 60691376 (3) Asthma exacerbation Current Visit: No Status: Acute Code(s): J45.901 - UNSPECIFIED ASTHMA WITH ( ACUTE) EXACERBATION SNOMED Code(s): 071193424
[2018-03-15 14:45] VITALS: BMI 30.4
--- NOTE | 2018-03-15 14:46 | P.MSEPDOC ---
Presenting Problems - Arrival Data Date of Arrival on Unit: 03/15/18 Time of Arrival on Unit: 12:29 Mode of Transport: Wheelchair - Complaint OB-Reason for Admission/Chief Complaint: Possible Onset of Labor Comment: Contractions since 99 Medical History - Information : 2 Para: 1 Term: 1 : 0 Abortions: Spontaneous or Elective: 0 Number of Living Children: 1 - Gestational Age Gestational Age by NUBIA (wks/days): 36 Weeks and 5 Days Review of Systems - Review of Systems Constitutional: No problems Breast: No problems ENT: No problems Cardiovascular: No problems Respiratory: Wheezing Gastrointestinal: No problems Genitourinary: No problems Musculoskeletal: No problems Neurological: No problems Skin: No problems Vital Signs - Temperature Temperature: 99.2 F Temperature Source: Temporal Artery Scan - Pulse Pulse Oximetery Pulse Rate: 106 Pulse Assessment Method: Pulse Oximetry - Respirations Respiratory Rate: 18 Oxygen Delivery Method: Room Air O2 Sat by Pulse Oximetry: 98 - Blood Pressure Right Arm Blood Pressure: 119/69 Blood Pressure Mean: 85 Blood Pressure Source: Automatic Cuff Medical Screen Scoring (Pre) - Cervical Exam Dilation: 1-3 cm = 1 Effacement: More than 50% = 2 Membranes: Intact - Uterine Contractions Frequency: > or = 36 weeks =2 Duration: N/A Intensity: N/A - Maternal Vital Signs Maternal Temperature: N/A Maternal Blood Pressure: N/A Signs of Preeclampsia: N/A Maternal Respirations: N/A - Pain Assessment Pain Location and Character: Abdomen Pain Scale Used: Numeric (1 - 10) Pain Intensity: 10 Pain Management Goal: 0 Pain Description: Cramping Pain Radiation Location: n/a Pain Frequency: Intermittent Pain Duration: 12 Pain Duration Units: Hours Pain Behavior: Crying, Vocalization Effects of Pain: n/a Pain Aggravating Factors: Contractions Pharmacological Interventions: PRN Medication Non-Pharmacological Interventions: Darkened Room, Distraction - Maternal Trauma Maternal Trauma: N/A - Assessment Baseline FHR: 155 Heart Rate - NICHD Category: Category I (Normal) = 0 NST: Reactive Position: N/A Station: N/A - Total Score Total Score (Pre): 5 - Level of Risk Level of Risk: Low (0-5) Physician Notification (Pre) - Physician Notified Physician Notified Date: 03/15/18 Physician Notified Time: 12:47 Physician/Practitioner Notifed:: Cecy Spoke With: Cecy New Order Received: Yes - Notification Comment Comment: Telephone order for IV fluid bolus of LR, and breathing treatment. Disposition - Disposition OB Disposition: Triage I agree with the RN Medical Screening Exam: Yes Risk & Benefit of care provided described in d/c instruction: Yes Diagnosis: RELATED CONDITIONS, UNSPECIFIED, THIRD TRIMESTER
[2018-03-15 15:07] LABS: Appearance,Urine Clear (Clear); Bacteria,Urine Rare /hpf; Bilirubin,Urine Negative (Negative); Blood,Urine Negative (Negative); Color,Urine Light Yellow; Glucose,Urine (UA) Negative (Negative); Ketones,Urine 1+ (Negative); Leukocyte Esterase,Urine Large (Negative); Mucus,Urine Rare /hpf; Nitrite,Urine Negative (Negative); PH, Urine 7.5 (5.0-8.0); Protein,Urine Negative (Negative); RBC,Urine <1 /hpf (0-5); Specific Gravity,Urine 1.005 (1.001-1.035); Squamous Epithelial Cell,Urine 1 /hpf (0-4); Urobilinogen,Urine <2.0 mg/dL (<2.0); WBC,Urine 29 /hpf (0-5)
--- NOTE | 2018-03-15 15:17 | P.PN ---
Progress Note - Text Progress Note Date: 03/15/18 Ultrasound shows a normal vertex fetus 7 lbs. 11 oz. with normal WARREN. Renal ultrasound shows moderate to severe hydronephrosis of the right side however no definite stone was seen. Urinalysis for the most part is unremarkable. CBC was normal. heart tones remained reactive. Plan at this time is to continue close observation with continuous monitoring. The nurses spoken to pulmonary and they've requested a chest x-ray. I rediscuss clinical situation with the patient and family in the understand this time we'll continue to watch there is any evidence of labor we'll proceed with delivery.
--- NOTE | 2018-03-15 15:35 | US ---
EXAMINATION TYPE: US OB >= 14 wk fetus DATE OF EXAM: 03/15/2018 COMPARISON: None CLINICAL HISTORY: Abdominal pain, patient suffers from severe asthma, is wheezing and has back pain, scheduled due to asthma TECHNIQUE: OBTA GESTATIONAL AGE / DATING Physician Established: (37 weeks/1 days) EDC: 04/04/2018 Dates by LMP: (36 weeks/2 days) EDC: 04/10/2018 Dates by First Scan: (36 weeks/6 days) EDC: 04/06/2018 Dates by Current Scan: (37 weeks/3 days) EDC: 04/02/2018 SURVEY IUP: Single PLACENTA: Anterior PREVIA: No Previa WARREN: 17.2 cm Normal CERVICAL LENGTH (transabdominal: norm > 3.0cm): non distended bladder and fetus shadowing prohibits c x measurement BIOMETRY PRESENTATION: Vertex LIE: Longitudinal BPD: 9.1 cm 36 weeks / 6 days HC: 33.8 cm 38 weeks / 5 days AC: 35.5 cm 39 weeks / 3 days FL: 7.2 cm 36 weeks / 5 days ESTIMATED WEIGHT IN GRAMS: 3484 grams ESTIMATED WEIGHT IN LBS/OZ: 7 lbs. 11 oz. WEIGHT PERCENTAGE BASED ON ESTABLISHED DATES: 86% HC/AC: 0.9 Normal FL/AC: 20.2 Normal HEART RATE: 128 bpm RHYTHM: Normal tech sheet given to Dr Sam at end of exam IMPRESSION: Viable intrauterine gestation with more than 14 week gestation heart rate of 128 bpm. Sonographic calculation consistent with a 37 week 3 day gestation plus or minus one week. Placenta lo cated anteriorly. Estimated weight of 3484 g +/- 522 g or approximately 7 lbs. 11 oz.+ or minus 1 lb. 2 oz.
--- NOTE | 2018-03-15 16:02 | XR ---
EXAMINATION TYPE: XR chest 2V DATE OF EXAM: 03/15/2018 COMPARISON: Prior chest x-ray dated 07/07/2014. HISTORY: Cough and asthma. 37 week gestation TECHNIQUE: Frontal and lateral views of the chest are obtained. FINDINGS: Inspiratory effort is less optimal than when compared with the prior study. There is no foc al air space opacity, pleural effusion, or pneumothorax seen. The cardiac silhouette size is within normal limits. The osseous structures are intact. IMPRESSION: Less inspiratory effort than when compared with the prior study. No definite acute parenc hymal infiltrate, pneumothorax or pleural effusions. Pleural and diaphragmatic surfaces are relativel y well preserved. Scapulas are partially obscuring the upper lung goode.
--- NOTE | 2018-03-15 16:30 | US ---
EXAMINATION TYPE: US kidneys/renal and bladder DATE OF EXAM: 03/15/2018 COMPARISON: NONE CLINICAL HISTORY: PAIN. Extreme back pain in 37 week patient suffering from asthma EXAM MEASUREMENTS: Right Kidney: 12.2 x 6.2 x 6.3 cm Left Kidney: 11.2 x 3.9 x 5.4 cm Right Kidney: moderate to severe hydronephrosis seen with no obvious stone noted Left Kidney: mild hydronephrosis seen with no obvious stone seen Bladder: patient voided prior to exam There is no evidence for hydronephrosis at this point in time. No nephrolithiasis is seen. No tayla s are identified. The urinary bladder is anechoic. Bilateral ureteral jets are seen. Tech impression given to Dr Sam in person on the LD floor IMPRESSION: Moderate to severe hydronephrosis on the right side.
[2018-03-15] MEDS ORDERED: CITRIC ACID-SODIUM CITRATE 15 ML CUP PO ONE (17:26)
[2018-03-15] MEDS ORDERED: ceFAZolin IN SWFI 2 GM/20 ML SYRINGE IVP ONE (17:26)
[2018-03-15] MEDS ORDERED: methylPREDNISolone SOD SUCCI 125 MG/2 ML VIAL IV STA (17:40)
[2018-03-15] MEDS: ALBUTEROL NEBULIZED 2.5 MG/3 ML INHALATION PRN (17:41)
[2018-03-15] MEDS ORDERED: BUDESONIDE 0.5 MG/2 ML NEBU INHALATION STA (17:47)
--- NOTE | 2018-03-15 17:51 | P.PN ---
Progress Note - Text Progress Note Date: 03/15/18 Patient's pain is now becoming intractable, despite IV pain medications. heart tones are still reactive she's having irregular contractions. Cervix is not made any change however at this point I feel is an the patient's best interest to proceed with delivery due to the intractable pain. I discussed this with her and her and they understand and wish to proceed. Plan is to optimize her from a pulmonary standpoint and proceed with repeat section now.
[2018-03-15] MEDS: SYMBICORT 160-4.5 MCG INHALER INHALATION SCH (17:54)
[2018-03-15] MEDS ORDERED: NALBUPHINE 10 MG/ML VIAL (10ML MDV) ONE (18:11)
[2018-03-15] MEDS ORDERED: PHENYLEPHRINE-0.9% NACL SYG 1 MG/10 ML SYRINGE ONE (18:11)
[2018-03-15] MEDS ORDERED: HYDROmorphone (PF) 1 MG/ML ONE (18:11)
[2018-03-15] MEDS ORDERED: ONDANSETRON 4 MG/2 ML VIAL ONE (18:11)
[2018-03-15] MEDS ORDERED: OXYTOCIN 10 UNIT/ML 1 ML VIAL ONE (18:11)
[2018-03-15] MEDS ORDERED: MORPHINE SULFATE (PF) 0.3 MG/0.3 ML SYR ONE (18:11)
--- NOTE | 2018-03-15 18:58 | P.OP ---
Date of Procedure: 03/15/18 Preoperative Diagnosis: #1: 36-5/7 week intrauterine . #2: Intractable pain probable labor. # 3: Previous section desires repeat. #4: Severe asthma Postoperative Diagnosis: Same Procedure(s) Performed: Repeat low transverse section Anesthesia: spinal Surgeon: Kaiden Sam [employer] Dismantler #1: Ruben Che Estimated Blood Loss (ml): 600 Pathology: other Condition: stable Disposition: floor Indications for Procedure: Please see dictated H&P for intimate details of this patient's admission. Brief summary this is a 32-year-old 2 para 1 female estimated gestational age 36-5/7 weeks' gestation who presented earlier today with complaints of severe low back and lower abdominal pain. Patient was not having regular contractions and cervix made no cervical change. Ultrasound and kidney evaluation was negative. Patient however despite IV pain medications had intractable pain and at this time was felt to be in labor despite no cervical dilation. I discussed with the patient and her elect to proceed with section for delivery at this time. Patient her stands the surgery and risks including risks of infection, bleeding, possible injury bowel, bladder, vessels, and/or other organs. Also risk of DVT and pulmonary embolism. Patient was given 100 mg of Solu-Medrol preoperatively due to her steroid use during the and an updraft as well. Operative Findings: Viable female infant Apgars 9 and 9 delivery time is 1826 hrs. Infant has spontaneous respirations and cry and grossly appeared normal. Description of Procedure: This patient has a Rubio catheter placed to straight drain. She is subsequently taken to the operating room where she sat up and spinal anesthetic is administered without incident. With adequate level of anesthesia she is abdominal prep and drape. Previous Pfannenstiel incision is then incised with scalpel. Second scalpel is taken of the fascia and the fascia scored with scalpel. Fascial incision extended bilaterally using the Hutchinson scissors. Fascia is dissected off the rectus muscles sharply. Rectus muscles are and the peritoneum identified and entered sharply. Peritoneal incision extended superior and inferior without difficulty. Bladder blade is then placed. Bladder peritoneum was taken off the lower uterine segment. Scalpels and taken low transverse uterine incision is made. Using a hemostat I gently into the uterine cavity and there is loss of clear fluid, copious amount. 's head is then guided through the incision with fundal pressure with delivery of the 's head. Mouth and nares are bulb suctioned there is no evidence of a nuchal cord. Have delivery anterior posterior shoulder and rest this 's body. This is a vigorous viable female infant Apgars are 9 and 9 delivery time is 1826 hrs. After delivery of the infant the umbilical cord is doubly clamped and cut appears to be trivascular. Placenta is then manually extracted intact. Uterus is then externalized and uterine incision demarcated with Pugh clamps. Uterine incision closed in 0 Vicryl running locked fashion 2 layers. Excellent hemostasis is noted. Bladder peritoneum was then reapproximated using 3-0 Vicryl. Excess fluid is removed from the abdomen and pelvis. Uterus tubes and ovaries appear normal for term gestation. Uterus placed back into the abdomen. Parietal peritoneum was then closed using 0 Vicryl running fashion. The fascia is then closed using 0 PDS in a running fashion. Fascial incision is intact and hemostatic. Subcutaneous tissue is then closed using a 3-0 Vicryl. Skin is and closed using chantell. Sterile dressing is then applied. All counts are correct 3. There are no complications. Patient will be given a Medrol Dosepak in approximately 8 hours when she is taking oral fluids.
[2018-03-15] MEDS ORDERED: ZOLPIDEM 5 MG TAB PO PRN (19:02)
[2018-03-15] MEDS ORDERED: METOCLOPRAMIDE 5 MG/ML 2 ML VIAL IVP PRN (19:02)
[2018-03-15] MEDS ORDERED: ONDANSETRON 4 MG/2 ML VIAL IVP PRN (19:02)
[2018-03-15] MEDS ORDERED: diphenhydrAMINE 25 MG CAP PO PRN (19:02)
[2018-03-15] MEDS ORDERED: OXYTOCIN 20 UNITS/1000 ML NS 1,000 ML IV SCH (19:02)
[2018-03-15] MEDS ORDERED: LANOLIN CREAM 5 GM TUBE TOPICAL PRN (19:02)
[2018-03-15] MEDS ORDERED: ACETAMINOPHEN TAB 325 MG TAB PO PRN (19:02)
[2018-03-15] MEDS ORDERED: diphenhydrAMINE 50 MG/ML 1 ML VIAL IVP PRN (19:02)
[2018-03-15] MEDS ORDERED: NALOXONE 0.4 MG/ML 1 ML VIAL IV PRN (19:02)
[2018-03-15] MEDS: LACTATED RINGERS 1,000 ML IV SCH (21:03)
[2018-03-15] MEDS: SENNOSIDES-DOCUSATE SODIUM 1 EACH TAB PO SCH (21:03)
[2018-03-16] MEDS ORDERED: ACETAMINOPHEN IV (For NPO) 1,000 MG in EMPTY BAG 1 BAG IVPB STA (00:38)
[2018-03-16] MEDS: LACTATED RINGERS 1,000 ML IV SCH ×3 (00:54→20:14)
[2018-03-16 06:48] LABS: Basophils % (A) 0 %; Eosinophils % (A) 0 %; HCT 31.2 % (34.0-46.0); HGB 10.5 gm/dL (11.4-16.0); Lymphocytes % (A) 6 %; MCH 29.2 pg (25.0-35.0); MCHC 33.7 g/dL (31.0-37.0); MCV 86.6 fL (80.0-100.0); Mean Platelet Volume 8.6; Monocytes # (A) 0.6 k/uL (0-1.0); Monocytes % (A) 3 %; Neutrophils # (A) 15.1 k/uL (1.3-7.7); Neutrophils % (A) 90 %; Platelet Count 209 k/uL (150-450); RBC 3.61 m/uL (3.80-5.40); WBC 16.9 k/uL (3.8-10.6)
--- NOTE | 2018-03-16 07:17 | P.PN ---
Progress Note - Text Date:03/16 Time:712am Patient is status post . Patient seen this morning with VAS score of 0. c/o of pruritus, no c/o nausea/vomiting, comfortable and doing well today.
[2018-03-16] MEDS: SYMBICORT 160-4.5 MCG INHALER INHALATION SCH (07:21)
[2018-03-16] MEDS: ALBUTEROL NEBULIZED 2.5 MG/3 ML INHALATION PRN (07:21)
--- NOTE | 2018-03-16 08:37 | P.PNOBGPC ---
Subjective - Subjective Principal diagnosis: S/P RLTCS POD #1 Interval history: Pt seen and examined. Denies N/V, F/C, CP or calf pain. she is still short of breath and wheezing audibly though she says she just had a breathing treatment. Patient reports: Reports appetite normal, Reports voiding normally, Reports pain well controlled : doing well Objective - Vital Signs Latest vital signs: Vital Signs Temp Pulse Pulse Resp BP Pulse Ox 03/16/18 07:31 88 03/16/18 07:21 84 03/16/18 06:00 15 98 03/16/18 04:00 98.5 F 83 15 105/64 98 03/16/18 00:00 98 F 88 18 116/74 98 03/15/18 20:51 98 F 82 15 102/61 100 03/15/18 20:21 100 15 98/57 03/15/18 19:51 84 15 105/65 98 03/15/18 19:36 89 15 100/64 97 03/15/18 19:21 79 15 105/57 100 03/15/18 19:06 98 F 104 H 15 120/59 98 03/15/18 18:51 96.6 F L 108 H 18 106/55 100 03/15/18 17:54 130 H 03/15/18 17:44 130 H 03/15/18 14:46 99.2 F 106 H 18 119/69 98 03/15/18 13:57 98.0 F 107 H 19 114/72 100 03/15/18 13:08 104 H 03/15/18 12:57 100 03/15/18 12:47 99.2 F 106 H 18 119/69 98 Intake and Output 03/15/18 03/16/18 03/16/18 22:59 06:59 14:59 Output Total 300 1400 Balance -300 -1400 Output: Urine 300 1400 Uretheral (Rubio) 900 Other: Voiding Method Indwelling Catheter # Voids 1 # Emeses 2 - Exam Lungs: bilateral: wheezes Chest: Normal S1, Normal S2 Extremities: Present: normal Abdomen: Present: normal appearance, soft. Absent: distention, tenderness Incision: Present: normal, dry, intact Uterus: Present: normal, firm - Labs Labs: Abnormal Lab Results - Last 24 Hours (Table) 03/15/18 03/15/18 03/16/18 Range/Units 13:06 14:50 06:40 WBC 16.9 H (3.8-10.6) k/uL RBC 3.49 L 3.61 L (3.80-5.40) m/uL Hgb 10.2 L 10.5 L (11.4-16.0) gm/dL Hct 29.8 L 31.2 L (34.0-46.0) % Neutrophils # 15.1 H (1.3-7.7) k/uL Lymphocytes # 0.9 L (1.0-4.8) k/uL Urine Ketones 1+ H (Negative) Ur Leukocyte Esterase Large H (Negative) Urine WBC 29 H (0-5) /hpf Urine WBC Clumps Rare H (None) /hpf Urine Bacteria Rare H (None) /hpf Urine Mucus Rare H (None) /hpf Assessment and Plan (1) Status post repeat low transverse section Current Visit: Yes Status: Acute Code(s): Z98.891 - HISTORY OF UTERINE SCAR FROM PREVIOUS SURGERY SNOMED Code(s): 104136350 (2) Asthma exacerbation Current Visit: No Status: Acute Code(s): J45.901 - UNSPECIFIED ASTHMA WITH ( ACUTE) EXACERBATION SNOMED Code(s): 778701619 Plan: 1. awaiting consult from pulmonary. 2. cont home meds 3. po pain meds-norco/motrin 4. consult 5. reg diet with flatus.
[2018-03-16] MEDS ORDERED: methylPREDNISolone 4 MG TAB TAPER PO SCH (09:00)
[2018-03-16] MEDS: HYDROcodone/APAP 7.5-325MG 1 EACH TAB PO PRN ×2 (09:30→17:33)
[2018-03-16] MEDS: SENNOSIDES-DOCUSATE SODIUM 1 EACH TAB PO SCH ×2 (09:33→20:14)
[2018-03-16] MEDS ORDERED: IPRATROPIUM-ALBUTEROL 3 ML NEB INHALATION PRN (11:47)
[2018-03-16] MEDS ORDERED: methylPREDNISolone SOD SUCCI 125 MG/2 ML VIAL IV SCH (12:00)
[2018-03-16] MEDS ORDERED: methylPREDNISolone SOD SUCCI 40 MG/ML 1 ML VIAL IV SCH (12:24)
[2018-03-16] MEDS: methylPREDNISolone SOD SUCCI 40 MG/ML 1 ML VIAL IV SCH ×2 (13:26→18:42)
--- NOTE | 2018-03-16 13:28 | P.CNPUL ---
History of Present Illness Consult date: 03/16/18 Reason for consult: dyspnea, cough, asthma Chief complaint: Shortness of breath History of present illness: Pulmonary consult dated 03/16/2018 32-year-old female 2 para 1 female who apparently is admitted and estimated gestational age of 36+ weeks. The patient apparently presented to labor and delivery with complaints of worsening back pain. For that reason she underwent a section performed by Dr. Means. I was asked to see the patient for her asthma. She has history of severe asthma. She sees my partner for that. In addition she has a history of gastroesophageal reflux disease. The patient has not been on steroids recently. She's been primarily on Symbicort and nebulizer treatments. After the , she developed significant shortness of breath cough wheezing chest tightness and difficulty breathing. For that reason I was consulted. Review of Systems A 12 point review of system is positive for shortness of breath chest tightness wheezing cough without phlegm production. No fever or chills. No nausea vomiting or diarrhea. She does have some very mild reproducible right lateral chest wall discomfort probably from coughing. It is reproducible. Past Medical History Past Medical History: Asthma, GERD/Reflux Additional Past Medical History / Comment(s): chronic severe asthma,has a high heart rate at times,daily steroid History of Any Multi-Drug Resistant Organisms: None Reported Past Surgical History: Section Additional Past Surgical History / Comment(s): ovarian surgery Past Anesthesia/Blood Transfusion Reactions: Postoperative Nausea & Vomiting ( PONV) Additional Past Anesthesia/Blood Transfusion Reaction / Comment(s): no hx blood transfusion Smoking Status: Never smoker Past Alcohol Use History: None Reported Past Drug Use History: None Reported - Past Family History Father Family Medical History: Diabetes Mellitus Mother Family Medical History: Diabetes Mellitus, Hypertension Additional Family Medical History / Comment(s): Asthma: cousins, aunts, neices, grandmother at 46yr of asthma. Medications and Allergies Home Medications Medication Instructions Recorded Confirmed Type Albuterol Nebulized [Ventolin 2.5 mg INHALATION RT-QID PRN 04/08/14 03/15/18 History Nebulized] Budesonide-Formot 160-4.5 Mcg 2 puff INHALATION RT-BID 04/08/14 03/15/18 History [Symbicort 160-4.5 Mcg Inhaler] Albuterol Sulfate [Ventolin HFA] 1 - 2 puff INHALATION RT-Q6H PRN 04/09/1403/15 History Allergies Allergy/AdvReac Type Severity Reaction Status Date / Time oxycodone HCl [From Percocet] AdvReac Mild Rapid Verified 03/15/18 12:34 Heart Rate Physical Exam Osteopathic Statement: *. No significant issues noted on an osteopathic structural exam other than those noted in the History and Physical/Consult. Vitals: Vital Signs Temp Pulse Pulse Resp BP Pulse Ox 03/16/18 08:00 98.4 F 86 18 93/63 98 03/16/18 07:31 88 03/16/18 07:21 84 03/16/18 06:00 15 98 03/16/18 04:00 98.5 F 83 15 105/64 98 03/16/18 00:00 98 F 88 18 116/74 98 03/15/18 20:51 98 F 82 15 102/61 100 03/15/18 20:21 100 15 98/57 03/15/18 19:51 84 15 105/65 98 03/15/18 19:36 89 15 100/64 97 03/15/18 19:21 79 15 105/57 100 03/15/18 19:06 98 F 104 H 15 120/59 98 03/15/18 18:51 96.6 F L 108 H 18 106/55 100 03/15/18 17:54 130 H 03/15/18 17:44 130 H 03/15/18 14:46 99.2 F 106 H 18 119/69 98 03/15/18 13:57 98.0 F 107 H 19 114/72 100 Intake and Output 03/15/18 03/16/18 03/16/18 22:59 06:59 14:59 Intake Total 1000 Output Total 300 1400 Balance -300 -1400 1000 Intake: IV 1000 Lactated Ringers 1,000 ml 1000 @ 125 mls/hr IV .Q8H SAMPSON Rx#:[id number] Output: Urine 300 1400 Uretheral (Rubio) 900 Other: Voiding Method Indwelling Catheter # Voids 1 400 # Emeses 2 No acute distress, oriented 3. Mild conversational dyspnea. HEENT examination is grossly unremarkable. Mucous membranes are moist. No oral lesions. Neck supple. Full range of motion. No adenopathy thyromegaly or neck vein distention. Cardiovascular examination reveals regular rhythm rate. S1-S2 normal. No S3 or S4. No discernible murmur noted. Lungs reveal diffuse bilateral expiratory wheezes and rhonchi. Breath sounds are diminished. Slight prolongation on forced maneuver. Breath sounds equal bilaterally. No crackles. There is mild reproducible right lateral chest wall discomfort. Abdomen soft bowel sounds are heard. No masses or tenderness. Extremities are intact. No cyanosis clubbing or edema. Skin is without rash or lesion. Neurologic examination is brief but nonfocal. Results - Laboratory Findings CBC and BMP: 03/16/18 06:40 Abnormal lab findings: Abnormal Labs 03/15/18 03/15/18 03/16/18 13:06 14:50 06:40 WBC 16.9 H RBC 3.49 L 3.61 L Hgb 10.2 L 10.5 L Hct 29.8 L 31.2 L Neutrophils # 15.1 H Lymphocytes # 0.9 L Urine Ketones 1+ H Ur Leukocyte Esterase Large H Urine WBC 29 H Urine WBC Clumps Rare H Urine Bacteria Rare H Urine Mucus Rare H - Diagnostic Findings Chest x-ray: report reviewed (Labs x-rays a medications are reviewed.), image reviewed Assessment and Plan Assessment: Assessment Postop day #1 status post section History of severe asthma, currently inactive History of gastroesophageal reflux disease Plan: Plan dated 03/16/2018. The patient is doing reasonably well. Her asthma is active. We'll make sure that she is on albuterol and Atrovent updrafts 4 times a day and when necessary. In addition, we started her on Solu-Medrol 40 mg IV push every 6 hours. In addition, we added Singulair 10 mg at bedtime and also Pulmicort 1 mg mixed with Performist twice a day. Additional recommendations and suggestions are forthcoming. Hopefully she'll be able get out of the hospital soon. She otherwise is doing reasonably well. The baby is fine. Time with Patient: Greater than 30
[2018-03-16] MEDS: IPRATROPIUM-ALBUTEROL 3 ML NEB INHALATION SCH ×3 (13:31→19:28)
[2018-03-16] MEDS: IBUPROFEN 600 MG TAB PO PRN ×2 (13:32→20:14)
[2018-03-16] MEDS: SIMETHICONE 80 MG CHEWABLE PO PRN (15:01)
[2018-03-16] MEDS: BUDESONIDE 1 MG/2 ML NEBU INHALATION SCH (19:28)
[2018-03-16] MEDS: FORMOTEROL FUMARATE 20 MCG/2 ML NEBU INHALATION SCH (19:45)
[2018-03-16] MEDS: MONTELUKAST 10 MG TAB PO SCH (21:44)
[2018-03-17] MEDS: HYDROcodone/APAP 7.5-325MG 1 EACH TAB PO PRN ×2 (00:29→10:46)
[2018-03-17] MEDS: methylPREDNISolone SOD SUCCI 40 MG/ML 1 ML VIAL IV SCH ×5 (00:29→23:49)
[2018-03-17] MEDS: LACTATED RINGERS 1,000 ML IV SCH ×2 (05:38→12:22)
[2018-03-17] MEDS: IBUPROFEN 600 MG TAB PO PRN ×3 (06:14→20:04)
--- NOTE | 2018-03-17 07:32 | P.PNOBGPC ---
Subjective - Subjective Principal diagnosis: S/P RLTCS POD #3 Interval history: Pt seen and examined. Denies N/V, F/C, CP, SOB or calf pain. She says her breathing is easier today and pain is better. Patient reports: Reports appetite normal, Reports voiding normally, Reports pain well controlled, Reports ambulating normally : doing well Objective - Vital Signs Latest vital signs: Vital Signs Temp Pulse Pulse Resp BP Pulse Ox 03/16/18 20:00 98.3 F 90 18 106/57 97 03/16/18 19:52 98 03/16/18 19:44 98 03/16/18 19:31 96 03/16/18 16:18 102 H 03/16/18 16:07 100 03/16/18 16:00 98.4 F 86 18 106/62 97 03/16/18 14:31 110 H 18 114/71 100 03/16/18 13:41 100 03/16/18 13:31 100 03/16/18 12:00 89 18 95/59 99 03/16/18 08:00 98.4 F 86 18 93/63 98 03/16/18 07:31 88 Intake and Output 03/16/18 03/17/18 03/17/18 22:59 06:59 14:59 Intake Total 1000 Balance 1000 Intake: IV 1000 Invasive Line 1 1000 Other: Voiding Method Indwelling Catheter - Exam Lungs: bilateral: normal Chest: Normal S1, Normal S2 Extremities: Present: normal Abdomen: Present: normal appearance, soft. Absent: distention, tenderness Incision: Present: normal, dry, intact Uterus: Present: normal, firm Assessment and Plan (1) Status post repeat low transverse section Current Visit: Yes Status: Acute Code(s): Z98.891 - HISTORY OF UTERINE SCAR FROM PREVIOUS SURGERY SNOMED Code(s): 774747639 (2) Asthma exacerbation Current Visit: No Status: Acute Code(s): J45.901 - UNSPECIFIED ASTHMA WITH ( ACUTE) EXACERBATION SNOMED Code(s): 630490934 Plan: 1. cont po pain meds 2. increase ambulation
[2018-03-17] MEDS: SENNOSIDES-DOCUSATE SODIUM 1 EACH TAB PO SCH ×2 (07:44→20:50)
[2018-03-17] MEDS: FORMOTEROL FUMARATE 20 MCG/2 ML NEBU INHALATION SCH ×2 (07:52→20:36)
[2018-03-17] MEDS: BUDESONIDE 1 MG/2 ML NEBU INHALATION SCH ×2 (07:52→20:36)
[2018-03-17] MEDS: IPRATROPIUM-ALBUTEROL 3 ML NEB INHALATION SCH ×4 (07:52→20:36)
--- NOTE | 2018-03-17 10:00 | P.PN ---
Subjective Progress Note Date: 03/17/18 Principal diagnosis: Asthma exacerbation Progress note dated 03/17/2018 32-year-old female who had a section a couple days ago. That went well and the baby is doing fine. Unfortunately, her asthma has become more active. She was complaining of chest tightness wheezing shortness of breath cough and minimal phlegm production. She was placed on usual therapy with DuoNeb's 4 times a day and when necessary, Pulmicort 1 mg mixed with Perforomist twice a day and Solu-Medrol 40 mg every 6 hours and Singulair 10 mg at bedtime. I'm happy to report that she is feeling better today but certainly not back to baseline. Objective - Vital Signs Vital signs: Vital Signs Temp 98.0 F 03/17/18 08:00 Pulse 96 03/17/18 08:14 Resp 18 03/17/18 08:00 BP 112/75 03/17/18 08:00 Pulse Ox 97 03/16/18 20:00 Intake & Output 03/16/18 03/17/18 03/17/18 18:59 06:59 18:59 Intake Total 1999 Balance 1999 Intake: IV 1999 Invasive Line 1 1000 Lactated Ringers 1,000 ml 1000 @ 125 mls/hr IV .Q8H SAMPSON Rx#:[id number] Other: Voiding Method Indwelling Catheter # Voids 400 - Exam No acute distress, oriented 3. Nasal O2 in place. HEENT examination is grossly unremarkable. Mucous membranes are moist. No oral lesions. Neck supple. Full range of motion. No adenopathy thyromegaly or neck vein distention. Cardiovascular examination reveals regular rhythm rate. S1-S2 normal. No S3 or S4. No discernible murmur noted. Lungs reveal inspiratory and expiratory wheezes and rhonchi. Breath sounds are diminished. There is prolongation on forced maneuver. Abdomen soft bowel sounds are heard. No masses or tenderness. Extremities are intact. No cyanosis clubbing or edema. Skin is without rash or lesion. Neurologic examination is brief but nonfocal. - Labs CBC & Chem 7: 03/16/18 06:40 Assessment and Plan Assessment: Assessment Postop day # 2, status post section History of severe asthma, currently active History of gastroesophageal reflux disease Plan: Plan dated 03/16/2018. The patient is doing reasonably well. Her asthma is active. We'll make sure that she is on albuterol and Atrovent updrafts 4 times a day and when necessary. In addition, we started her on Solu-Medrol 40 mg IV push every 6 hours. In addition, we added Singulair 10 mg at bedtime and also Pulmicort 1 mg mixed with Performist twice a day. Additional recommendations and suggestions are forthcoming. Hopefully she'll be able get out of the hospital soon. She otherwise is doing reasonably well. The baby is fine. Plan dated 03/17/2018 The patient seemed be doing a bit better today. We'll put her on all the usual therapies to get her asthma under better control. She is much less short of breath. Less wheezing tightness and coughing. The patient will need a few more days of therapy. The baby is doing well. Mom is doing well from the standpoint of the . No additional recommendations are made. Time with Patient: Less than 30
[2018-03-17] MEDS: SIMETHICONE 80 MG CHEWABLE PO PRN (20:04)
[2018-03-17] MEDS: MONTELUKAST 10 MG TAB PO SCH (20:50)
[2018-03-18] MEDS: HYDROcodone/APAP 7.5-325MG 1 EACH TAB PO PRN ×2 (04:49→18:54)
[2018-03-18] MEDS: methylPREDNISolone SOD SUCCI 40 MG/ML 1 ML VIAL IV SCH ×4 (05:49→23:59)
[2018-03-18] MEDS: LACTATED RINGERS 1,000 ML IV SCH ×2 (07:44→11:40)
[2018-03-18] MEDS: SENNOSIDES-DOCUSATE SODIUM 1 EACH TAB PO SCH ×2 (07:45→21:25)
[2018-03-18] MEDS: IBUPROFEN 600 MG TAB PO PRN ×3 (07:45→23:59)
[2018-03-18] MEDS: IPRATROPIUM-ALBUTEROL 3 ML NEB INHALATION SCH ×4 (07:47→20:10)
[2018-03-18] MEDS: BUDESONIDE 1 MG/2 ML NEBU INHALATION SCH ×2 (07:48→20:10)
[2018-03-18] MEDS: FORMOTEROL FUMARATE 20 MCG/2 ML NEBU INHALATION SCH ×2 (07:48→20:10)
--- NOTE | 2018-03-18 09:16 | P.PNOBGPC ---
Subjective - Subjective Principal diagnosis: S/P RLTCS POD #3 Interval history: Pt seen and examined. Her pain is well controlled but her asthma is bothering her again. She is wheezing but pulse ox remains 98-100%. Patient reports: Reports appetite normal, Reports voiding normally, Reports pain well controlled, Reports ambulating normally [place]: doing well Objective - Vital Signs Latest vital signs: Vital Signs Temp Pulse Pulse Resp BP Pulse Ox 03/18/18 08:16 82 03/18/18 08:00 80 03/18/18 07:48 76 03/18/18 07:27 97.9 F 67 18 129/72 98 03/18/18 00:00 98.1 F 72 16 100/61 97 03/17/18 21:02 90 03/17/18 20:55 92 03/17/18 20:54 92 03/17/18 20:39 92 03/17/18 16:50 92 03/17/18 16:40 89 03/17/18 11:47 92 03/17/18 11:35 92 - Exam Lungs: bilateral: normal Chest: Normal S1, Normal S2 Extremities: Present: normal Abdomen: Present: normal appearance, soft. Absent: distention, tenderness Incision: Present: normal, dry, intact Uterus: Present: normal, firm Assessment and Plan (1) Status post repeat low transverse section Current Visit: Yes Status: Acute Code(s): Z98.891 - HISTORY OF UTERINE SCAR FROM PREVIOUS SURGERY SNOMED Code(s): 134164769 (2) Asthma exacerbation Current Visit: No Status: Acute Code(s): J45.901 - UNSPECIFIED ASTHMA WITH ( ACUTE) EXACERBATION SNOMED Code(s): 495672899 Plan: 1. cont pulm plan 2. pain control
--- NOTE | 2018-03-18 10:15 | P.PN ---
Subjective Progress Note Date: 03/18/18 Principal diagnosis: Asthma exacerbation Progress note dated 03/17/2018 32-year-old female who had a section a couple days ago. That went well and the baby is doing fine. Unfortunately, her asthma has become more active. She was complaining of chest tightness wheezing shortness of breath cough and minimal phlegm production. She was placed on usual therapy with DuoNeb's 4 times a day and when necessary, Pulmicort 1 mg mixed with Perforomist twice a day and Solu-Medrol 40 mg every 6 hours and Singulair 10 mg at bedtime. I'm happy to report that she is feeling better today but certainly not back to baseline. Progress note dated 03/18/2018 32-year-old female with a history of a couple days back. Baby and mother are doing fine except for the mother's asthma is active. She does see one of my partners for severe chronic bronchial asthma which is quite persistent. She is on all the usual medications including albuterol Atrovent Pulmicort Perforomist Singulair and Solu-Medrol IV. She is getting better. Not back to baseline. Still with complaints of shortness of breath chest tightness cough and wheezing. Objective - Vital Signs Vital signs: Vital Signs Temp 97.9 F 03/18/18 07:27 Pulse 82 03/18/18 08:16 Resp 18 03/18/18 07:27 BP 129/72 03/18/18 07:27 Pulse Ox 98 03/18/18 07:27 - Exam No acute distress, oriented 3. Nasal O2 in place. HEENT examination is grossly unremarkable. Mucous membranes are moist. No oral lesions. Neck supple. Full range of motion. No adenopathy thyromegaly or neck vein distention. Cardiovascular examination reveals regular rhythm rate. S1-S2 normal. No S3 or S4. No discernible murmur noted. Lungs reveal inspiratory and expiratory wheezes and rhonchi. Breath sounds are diminished. There is prolongation on forced maneuver. Breath sounds are generally improved. Not back to baseline. Abdomen soft bowel sounds are heard. No masses or tenderness. Extremities are intact. No cyanosis clubbing or edema. Skin is without rash or lesion. Neurologic examination is brief but nonfocal. - Labs CBC & Chem 7: 03/16/18 06:40 Assessment and Plan Assessment: Assessment Postop day # 2, status post section History of severe asthma, currently active History of gastroesophageal reflux disease Plan: Plan dated 03/16/2018. The patient is doing reasonably well. Her asthma is active. We'll make sure that she is on albuterol and Atrovent updrafts 4 times a day and when necessary. In addition, we started her on Solu-Medrol 40 mg IV push every 6 hours. In addition, we added Singulair 10 mg at bedtime and also Pulmicort 1 mg mixed with Performist twice a day. Additional recommendations and suggestions are forthcoming. Hopefully she'll be able get out of the hospital soon. She otherwise is doing reasonably well. The baby is fine. Plan dated 03/17/2018 The patient seemed be doing a bit better today. We'll put her on all the usual therapies to get her asthma under better control. She is much less short of breath. Less wheezing tightness and coughing. The patient will need a few more days of therapy. The baby is doing well. Mom is doing well from the standpoint of the . No additional recommendations are made. Plan dated 03/18/2018 The patient continues to show improvement. The patient's asthma is under better control but not quite worried needs to be. She is on all the usual medications. She should get better. No additional recommendations are made. Baby is doing fine. We'll continue to follow. Time with Patient: Less than 30
[2018-03-18] MEDS: MONTELUKAST 10 MG TAB PO SCH (21:25)
[2018-03-19] MEDS: HYDROcodone/APAP 7.5-325MG 1 EACH TAB PO PRN ×4 (03:30→21:50)
[2018-03-19] MEDS: methylPREDNISolone SOD SUCCI 40 MG/ML 1 ML VIAL IV SCH ×2 (06:06→12:12)
[2018-03-19] MEDS: IBUPROFEN 600 MG TAB PO PRN ×3 (06:06→19:47)
[2018-03-19] MEDS: BUDESONIDE 1 MG/2 ML NEBU INHALATION SCH ×2 (08:15→19:56)
[2018-03-19] MEDS: FORMOTEROL FUMARATE 20 MCG/2 ML NEBU INHALATION SCH ×2 (08:15→19:56)
[2018-03-19] MEDS: IPRATROPIUM-ALBUTEROL 3 ML NEB INHALATION SCH ×4 (08:15→19:56)
--- NOTE | 2018-03-19 08:32 | P.PNOBGPC ---
Subjective - Subjective Principal diagnosis: Status post repeat low transverse postoperative day #4 Interval history: Patient seen and examined. She says she still has some chest tightness and requires her nebulized breathing treatments. Her pain is well-controlled. She is tolerating regular diet and passing flatus. Denies nausea, vomiting, fever, chills, chest pain, or calf pain. Patient reports: Reports appetite normal, Reports voiding normally, Reports pain well controlled, Reports ambulating normally : doing well Objective - Vital Signs Latest vital signs: Vital Signs Temp Pulse Pulse Resp BP Pulse Ox 03/19/18 08:18 70 03/19/18 00:00 98.2 F 80 18 113/72 97 03/18/18 20:34 90 03/18/18 20:27 90 03/18/18 20:26 90 03/18/18 20:12 86 03/18/18 16:24 98 03/18/18 16:15 92 03/18/18 16:00 98.5 F 86 16 110/84 03/18/18 12:00 98.3 F 99 20 106/65 98 03/18/18 11:58 100 03/18/18 11:44 90 Intake and Output 03/18/18 03/19/18 03/19/18 22:59 06:59 14:59 Other: # Voids 1 - Exam Lungs: bilateral: normal, wheezes Chest: Normal S1, Normal S2 Extremities: Present: normal Abdomen: Present: normal appearance, soft. Absent: distention, tenderness Incision: Present: normal, dry, intact Uterus: Present: normal, firm Assessment and Plan (1) Status post repeat low transverse section Current Visit: Yes Status: Acute Code(s): Z98.891 - HISTORY OF UTERINE SCAR FROM PREVIOUS SURGERY SNOMED Code(s): 748292662 (2) Asthma exacerbation Current Visit: Yes Status: Acute Code(s): J45.901 - UNSPECIFIED ASTHMA WITH (ACUTE) EXACERBATION SNOMED Code(s): 370822763 Plan: 1. Continue home medications for asthma and nebulized treatments as well as steroids per pulmonary 2. Continue postoperative care
[2018-03-19] MEDS: SENNOSIDES-DOCUSATE SODIUM 1 EACH TAB PO SCH ×2 (09:14→21:26)
--- NOTE | 2018-03-19 10:03 | P.PN ---
Subjective Progress Note Date: 03/19/18 Principal diagnosis: Asthma exacerbation Progress note dated 03/17/2018 32-year-old female who had a section a couple days ago. That went well and the baby is doing fine. Unfortunately, her asthma has become more active. She was complaining of chest tightness wheezing shortness of breath cough and minimal phlegm production. She was placed on usual therapy with DuoNeb's 4 times a day and when necessary, Pulmicort 1 mg mixed with Perforomist twice a day and Solu-Medrol 40 mg every 6 hours and Singulair 10 mg at bedtime. I'm happy to report that she is feeling better today but certainly not back to baseline. Progress note dated 03/18/2018 32-year-old female with a history of a couple days back. Baby and mother are doing fine except for the mother's asthma is active. She does see one of my partners for severe chronic bronchial asthma which is quite persistent. She is on all the usual medications including albuterol Atrovent Pulmicort Perforomist Singulair and Solu-Medrol IV. She is getting better. Not back to baseline. Still with complaints of shortness of breath chest tightness cough and wheezing. Progress note dated 03/19/2018 32-year-old female with a history of recent . The patient's asthma is a bit more active. She was started on usual medications including DuoNeb, 4 times a day and when necessary Pulmicort 1 mg mixed with Performist twice a day Singulair 10 mg at bedtime and Solu-Medrol 40 mg every 6. The patient has slowly improved. From our perspective the patient could be discharged home. She should be discharged home on all her usual medications and she'll be discharged home on prednisone 40 mg a day with a taper. She should take 40 mg a day for 4 days and then 30 mg a day for 4 days 20 mg a day for 4 days and then finally Temovate him today for 4 days. She should follow-up with our nurse practitioner next week in the office. I she typically sees my partner Dr. Soto by Dr. Soto will be on-call next week. Objective - Vital Signs Vital signs: Vital Signs Temp 98.2 F 03/19/18 08:00 Pulse 72 03/19/18 08:44 Resp 20 07/05/18 08:00 BP 128/78 03/19/18 08:00 Pulse Ox 100 03/19/18 08:00 Intake & Output 03/18/18 03/19/18 03/19/18 18:59 06:59 18:59 Other: # Voids 1 - Exam No acute distress, oriented 3. Nasal O2 in place. HEENT examination is grossly unremarkable. Mucous membranes are moist. No oral lesions. Neck supple. Full range of motion. No adenopathy thyromegaly or neck vein distention. Cardiovascular examination reveals regular rhythm rate. S1-S2 normal. No S3 or S4. No discernible murmur noted. Lungs reveal mild expiratory wheezes. Breath sounds are improved. Breath sounds are diminished. There is prolongation on forced maneuver. Breath sounds are generally improved. Not quite back to baseline. Abdomen soft bowel sounds are heard. No masses or tenderness. Extremities are intact. No cyanosis clubbing or edema. Skin is without rash or lesion. Neurologic examination is brief but nonfocal. - Labs CBC & Chem 7: 03/16/18 06:40 Assessment and Plan Assessment: Assessment Postop day # 3, status post section History of severe asthma, currently active History of gastroesophageal reflux disease Suspected intermittent laryngeal dyskinesia or vocal cord dysfunction. Plan: Plan dated 03/16/2018. The patient is doing reasonably well. Her asthma is active. We'll make sure that she is on albuterol and Atrovent updrafts 4 times a day and when necessary. In addition, we started her on Solu-Medrol 40 mg IV push every 6 hours. In addition, we added Singulair 10 mg at bedtime and also Pulmicort 1 mg mixed with Performist twice a day. Additional recommendations and suggestions are forthcoming. Hopefully she'll be able get out of the hospital soon. She otherwise is doing reasonably well. The baby is fine. Plan dated 03/17/2018 The patient seemed be doing a bit better today. We'll put her on all the usual therapies to get her asthma under better control. She is much less short of breath. Less wheezing tightness and coughing. The patient will need a few more days of therapy. The baby is doing well. Mom is doing well from the standpoint of the . No additional recommendations are made. Plan dated 03/18/2018 The patient continues to show improvement. The patient's asthma is under better control but not quite worried needs to be. She is on all the usual medications. She should get better. No additional recommendations are made. Baby is doing fine. We'll continue to follow. Plan dated 03/19/2018. The patient can be discharged home. The patient should be discharged home on all the usual breathing medications as well as prednisone 40 mg a day for 4 days , dropping by 10 mg every fourth day. She should follow-up with our nurse practitioner next week in the office. She sees Dr. Soto in the office. He is on-call next week. Additional recommendations and suggestions are forthcoming. Time with Patient: Less than 30
[2018-03-19] MEDS: LACTATED RINGERS 1,000 ML IV SCH ×2 (12:28→20:06)
[2018-03-19] MEDS: MONTELUKAST 10 MG TAB PO SCH (21:44)
[2018-03-19 23:34] VITALS: RESP 22
[2018-03-20] MEDS: IBUPROFEN 600 MG TAB PO PRN ×2 (01:39→07:40)
[2018-03-20] MEDS: HYDROcodone/APAP 7.5-325MG 1 EACH TAB PO PRN ×2 (04:52→11:53)
[2018-03-20 07:58] VITALS: BP 118/79; TEMP 98.1
--- NOTE | 2018-03-20 08:02 | P.DS ---
Providers Date of admission: 03/15/18 18:26 Expected date of discharge: 03/20/18 Attending physician: Dian Ricci Consults: 03/15/18 13:45 Consult Physician Stat Consulting Provider: Karen Soto Consult Reason/Comments: Chronic asthmatic consult Do you want consulting provider notified?: Yes Primary care physician: Stated None - Discharge Diagnosis(es) (1) Status post repeat low transverse section Current Visit: Yes Status: Acute (2) Asthma exacerbation Current Visit: Yes Status: Acute Hospital Course: Patient presented at 36 weeks and 5 days complaining of pain and an acute exacerbation of her asthma. Pulmonary consult was requested upon admission. When they were reached by phone pulmonologists to restart her medications and they would see her in the morning. Subsequently the patient's pain worsened and she underwent a repeat low transverse . One pulmonary came to see her the next day they put her on IV steroids to treat her asthma. She made very slow improvement with her asthma as she is refractory to steroid treatment at this time considering she's been treated so many times for her asthma. She was followed closely with obstetrics and pulmonary. Her postoperative course her pain was controlled and her breathing continued to slowly improve. On postoperative day #5 she will be discharged home with [place], Motrin, her normal home regimen of breathing medications and a tapered dose of prednisone. She'll follow up with pulmonary next week as well as myself for incision check. She denies nausea, vomiting, chest pain, fever, chills, calf pain. She is ambulating and voiding without difficulty and tolerating regular diet, passing flatus and having bowel movements. Her incision is clean, dry, intact and chantell will be removed today. She is clear on the plan and so is her and family. Plan - Discharge Summary New Discharge Prescriptions: New HYDROcodone/APAP 7.5-325MG [[place] 7.5-325] 1 each PO Q4H PRN #18 tab PRN Reason: Pain Ibuprofen [Motrin] 600 mg PO Q6HR PRN #30 tab PRN Reason: Mild Pain Or Fever >= 100.5 predniSONE See Taper PO DAILY #7 tab No Action Budesonide-Formot 160-4.5 Mcg [Symbicort 160-4.5 Mcg Inhaler] 2 puff INHALATION RT-BID Albuterol Nebulized [Ventolin Nebulized] 2.5 mg INHALATION RT-QID PRN PRN Reason: Dyspnea Albuterol Sulfate [Ventolin HFA] 1 - 2 puff INHALATION RT-Q6H PRN PRN Reason: Shortness Of Breath Or Wheezing Discharge Medication List Albuterol Nebulized [Ventolin Nebulized] 2.5 mg INHALATION RT-QID PRN 04/08/14 [ History] Budesonide-Formot 160-4.5 Mcg [Symbicort 160-4.5 Mcg Inhaler] 2 puff INHALATION RT-BID 04/08/14 [History] Albuterol Sulfate [Ventolin HFA] 1 - 2 puff INHALATION RT-Q6H PRN 04/09/14 [ History] HYDROcodone/APAP 7.5-325MG [[place] 7.5-325] 1 each PO Q4H PRN #18 tab 03/20/18 [ Rx] Ibuprofen [Motrin] 600 mg PO Q6HR PRN #30 tab 03/20/18 [Rx] predniSONE See Taper PO DAILY #7 tab 03/20/18 [Rx] Follow up Appointment(s)/Referral(s): Dian Ricci DO [Doctor of Osteopathic Medicine] - 1 Week Discharge Disposition: HOME SELF-CARE
[2018-03-20] MEDS: SENNOSIDES-DOCUSATE SODIUM 1 EACH TAB PO SCH (08:09)
[2018-03-20] MEDS: IPRATROPIUM-ALBUTEROL 3 ML NEB INHALATION SCH ×2 (08:40→13:14)
[2018-03-20] MEDS: BUDESONIDE 1 MG/2 ML NEBU INHALATION SCH (08:40)
[2018-03-20] MEDS: FORMOTEROL FUMARATE 20 MCG/2 ML NEBU INHALATION SCH (08:40)
[2018-03-20 08:55] VITALS: PULSE 84
[2018-03-20] MEDS ORDERED: predniSONE 20 MG TAB PO SCH (09:00)
--- NOTE | 2018-03-20 11:32 | P.PN ---
Subjective Progress Note Date: 03/20/18 Principal diagnosis: Asthma exacerbation Progress note dated 03/17/2018 32-year-old female who had a section a couple days ago. That went well and the baby is doing fine. Unfortunately, her asthma has become more active. She was complaining of chest tightness wheezing shortness of breath cough and minimal phlegm production. She was placed on usual therapy with DuoNeb's 4 times a day and when necessary, Pulmicort 1 mg mixed with Perforomist twice a day and Solu-Medrol 40 mg every 6 hours and Singulair 10 mg at bedtime. I'm happy to report that she is feeling better today but certainly not back to baseline. Progress note dated 03/18/2018 32-year-old female with a history of a couple days back. Baby and mother are doing fine except for the mother's asthma is active. She does see one of my partners for severe chronic bronchial asthma which is quite persistent. She is on all the usual medications including albuterol Atrovent Pulmicort Perforomist Singulair and Solu-Medrol IV. She is getting better. Not back to baseline. Still with complaints of shortness of breath chest tightness cough and wheezing. Progress note dated 03/19/2018 32-year-old female with a history of recent . The patient's asthma is a bit more active. She was started on usual medications including DuoNeb, 4 times a day and when necessary Pulmicort 1 mg mixed with Performist twice a day Singulair 10 mg at bedtime and Solu-Medrol 40 mg every 6. The patient has slowly improved. From our perspective the patient could be discharged home. She should be discharged home on all her usual medications and she'll be discharged home on prednisone 40 mg a day with a taper. She should take 40 mg a day for 4 days and then 30 mg a day for 4 days 20 mg a day for 4 days and then finally Temovate him today for 4 days. She should follow-up with our nurse practitioner next week in the office. I she typically sees my partner Dr. Soto by Dr. Soto will be on-call next week. Progress note dated 03/20/2018 32-year-old female with history of recent and severe chronic bronchial asthma which became more active after she delivered. The patient was treated with typical medications and she is feeling much better today. The patient can be discharged home. He was placed on DuoNeb 4 times a day and when necessary Singulair 10 g at bedtime solumedrol 40 mg every 6 hours and also Pulmicort mixed with Perforomist twice a day. The patient will see myself or our nurse practitioner in the office next week. Objective - Vital Signs Vital signs: Vital Signs Temp 98.1 F 03/20/18 07:57 Pulse 84 03/20/18 09:06 Resp 22 03/20/18 07:57 BP 118/79 03/20/18 07:57 Pulse Ox 98 03/20/18 07:57 Intake & Output 03/19/18 03/20/18 03/20/18 18:59 06:59 18:59 Weight 78.018 kg - Exam No acute distress, oriented 3. Nasal O2 in place. HEENT examination is grossly unremarkable. Mucous membranes are moist. No oral lesions. Neck supple. Full range of motion. No adenopathy thyromegaly or neck vein distention. Cardiovascular examination reveals regular rhythm rate. S1-S2 normal. No S3 or S4. No discernible murmur noted. Lungs reveal mild expiratory wheezes. Breath sounds are improved. Breath sounds are diminished. There is prolongation on forced maneuver. Breath sounds are generally improved. Not quite back to baseline. Abdomen soft bowel sounds are heard. No masses or tenderness. Extremities are intact. No cyanosis clubbing or edema. Skin is without rash or lesion. Neurologic examination is brief but nonfocal. - Labs CBC & Chem 7: 03/16/18 06:40 Assessment and Plan Assessment: Assessment Postop day # 4, status post section History of severe asthma, currently active History of gastroesophageal reflux disease Suspected intermittent laryngeal dyskinesia or vocal cord dysfunction. Plan: Plan dated 03/16/2018. The patient is doing reasonably well. Her asthma is active. We'll make sure that she is on albuterol and Atrovent updrafts 4 times a day and when necessary. In addition, we started her on Solu-Medrol 40 mg IV push every 6 hours. In addition, we added Singulair 10 mg at bedtime and also Pulmicort 1 mg mixed with Performist twice a day. Additional recommendations and suggestions are forthcoming. Hopefully she'll be able get out of the hospital soon. She otherwise is doing reasonably well. The baby is fine. Plan dated 03/17/2018 The patient seemed be doing a bit better today. We'll put her on all the usual therapies to get her asthma under better control. She is much less short of breath. Less wheezing tightness and coughing. The patient will need a few more days of therapy. The baby is doing well. Mom is doing well from the standpoint of the . No additional recommendations are made. Plan dated 03/18/2018 The patient continues to show improvement. The patient's asthma is under better control but not quite worried needs to be. She is on all the usual medications. She should get better. No additional recommendations are made. Baby is doing fine. We'll continue to follow. Plan dated 03/19/2018. The patient can be discharged home. The patient should be discharged home on all the usual breathing medications as well as prednisone 40 mg a day for 4 days , dropping by 10 mg every fourth day. She should follow-up with our nurse practitioner next week in the office. She sees Dr. Soto in the office. He is on-call next week. Additional recommendations and suggestions are forthcoming. Plan dated 03/20/2018 The patient can be discharged home on her usual medications along with a prednisone burst and taper. That was outlined on a previous note. The patient will see us next week in the office. I told her to take it easy until she sees us next week. She was actually placed on our nurse practitioner scheduled but I 'll be in the office as well as I will see her at the same time. No additional recommendations are made. Prognosis is guarded. We'll continue to watch her closely. Time with Patient: Less than 30
== END 2018-03-20 13:15 | disposition home or self-care (01) | DRG 765 ==
LOC: FBPOP 12:29 → 4FBP 13:44 → OBSVTOIN 18:26
PROVIDERS: ADMIT Obstetrics & Gynecology; ATTEND Obstetrics & Gynecology
PROC: 10D00Z1 Extraction of Products of Conception, Low, Open Approach (ICD-10-PCS; principal; 2018-03-15 18:23)
DX: O99.89 Other specified diseases and conditions complicating pregnancy, childbirth and the puerperium (principal); J45.51 Severe persistent asthma with (acute) exacerbation; N13.30 Unspecified hydronephrosis; O34.211 Maternal care for low transverse scar from previous cesarean delivery; O99.52 Diseases of the respiratory system complicating childbirth; O99.62 Diseases of the digestive system complicating childbirth; K21.9 Gastro-esophageal reflux disease without esophagitis; M54.5 Low back pain; O99.72 Diseases of the skin and subcutaneous tissue complicating childbirth; L29.9 Pruritus, unspecified; Z37.0 Single live birth; Z3A.36 36 weeks gestation of pregnancy; Z79.51 Long term (current) use of inhaled steroids; Z88.5 Allergy status to narcotic agent; Z82.49 Family history of ischemic heart disease and other diseases of the circulatory system; Z82.5 Family history of asthma and other chronic lower respiratory diseases; Z83.3 Family history of diabetes mellitus
CPT/HCPCS: 59025; 71046; 76770; 76805; 81001; 85025; 86850; 86900; 86901; 88307; 94640; 96360; 99214

== ENCOUNTER → 2018-08-14 | Outpatient (CLI) | payer OTHER ==
--- NOTE | 2018-08-14 09:34 | MR ---
EXAMINATION TYPE: MR knee LT wo con DATE OF EXAM: 08/14/2018 COMPARISON: None HISTORY: Left knee pain TECHNIQUE: Multiplanar, multisequence imaging of the left knee is performed without IV contrast. FINDINGS: MEDIAL MENISCUS: Intrasubstance signal seen posterior horn medial meniscus with no evidence of articu lar extension. 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 LATERAL MENISCUS: Anterior and posterior horns are intact without tear. CRUCIATE LIGAMENTS: The anterior and posterior cruciate ligaments are intact and unremarkable. COLLATERAL LIGAMENTS: The medial collateral ligament and lateral collateral ligament complex are inta ct and unremarkable. EXTENSOR MECHANISM: Visualized quadriceps and patellar tendons are intact. EFFUSION: No significant suprapatellar joint effusion. POPLITEAL CYST: Tiny subcentimeter popliteal fossa cyst. TRICOMPARTMENT SPACES: There is a small amount of fluids patellar bursa. Grade II chondromalacia szymanski llar cartilage. Localized grade III chondromalacia along the medial patellar facet. BONE MARROW SIGNAL: Marrow signal involving medial patella likely reactive. IMPRESSION: 1. Chondromalacia patellar cartilage. 2. 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
== END | disposition home or self-care (01) ==
LOC: RADMRIMAIN 08:43
PROVIDERS: ATTEND Family Medicine
DX: M22.42 Chondromalacia patellae, left knee (principal); M23.322 Other meniscus derangements, posterior horn of medial meniscus, left knee

== ENCOUNTER 2018-10-30 13:51 | Emergency (ER) | payer OTHER ==
[2018-10-30 13:55] VITALS: BP 112/72; PULSE 88; RESP 20; TEMP 98.4
--- NOTE | 2018-10-30 14:24 | ED ---
General Adult HPI - General Chief complaint: Eye Problems Stated complaint: Eye Pain Source: patient, RN notes reviewed Mode of arrival: ambulatory Limitations: no limitations - History of Present Illness Initial comments: Patient is a 33-year-old female who presents the emergency department with complaint of feeling that something is in her right eye since yesterday morning. She states that she woke up yesterday morning and felt like there was something in her eye. Denies seeing anything in her eye. Admits to some watering of her eyes. She also states that she has started to feel like something is in her left eye as well. Patient denies any recent fever, chills, shortness of breath, chest pain, back pain, abdominal pain, nausea or vomiting, numbness or tingling, headaches, or any other complaints. - Related Data Home Medications Medication Instructions Recorded Confirmed Albuterol Nebulized [Ventolin 2.5 mg INHALATION RT-QID PRN 04/08/14 03/15/18 Nebulized] Budesonide-Formot 160-4.5 Mcg 2 puff INHALATION RT-BID 04/08/14 03/15/18 [Symbicort 160-4.5 Mcg Inhaler] Albuterol Sulfate [Ventolin HFA] 1 - 2 puff INHALATION RT-Q6H PRN 04/09/1403/15 Previous Rx's Medication Instructions Recorded HYDROcodone/APAP 7.5-325MG [[place] 1 each PO Q4H PRN #18 tab 03/20/18 7.5-325] Ibuprofen [Motrin] 600 mg PO Q6HR PRN #30 tab 03/20/18 predniSONE See Taper PO DAILY #7 tab 03/20/18 Allergies Allergy/AdvReac Type Severity Reaction Status Date / Time oxycodone HCl [From Percocet] AdvReac Mild Rapid Verified 10/30/18 13:55 Heart Rate Review of Systems ROS Statement: Those systems with pertinent positive or pertinent negative responses have been documented in the HPI. ROS Other: All systems not noted in ROS Statement are negative. Past Medical History Past Medical History: Asthma, GERD/Reflux Additional Past Medical History / Comment(s): chronic severe asthma,has a high heart rate at times,daily steroid History of Any Multi-Drug Resistant Organisms: None Reported Past Surgical History: Section Additional Past Surgical History / Comment(s): ovarian surgery Past Anesthesia/Blood Transfusion Reactions: Postoperative Nausea & Vomiting ( PONV) Additional Past Anesthesia/Blood Transfusion Reaction / Comment(s): no hx blood transfusion Past Psychological History: No Psychological Hx Reported Smoking Status: Never smoker Past Alcohol Use History: None Reported Past Drug Use History: None Reported - Past Family History Father Family Medical History: Diabetes Mellitus Mother Family Medical History: Diabetes Mellitus, Hypertension Additional Family Medical History / Comment(s): Asthma: cousins, aunts, neices, grandmother at 46yr of asthma. General Exam Limitations: no limitations General appearance: alert, in no apparent distress Head exam: Present: atraumatic, normocephalic Eye exam: Present: normal appearance, PERRL, EOMI, other (Mild erythema and edema of right upper/inner eyelid.) ENT exam: Present: normal oropharynx Respiratory exam: Present: normal lung sounds bilaterally. Absent: wheezes, rales, rhonchi Cardiovascular Exam: Present: regular rate, normal rhythm Neurological exam: Present: alert, oriented X3 Course Vital Signs 10/30/18 13:53 Temperature 98.4 F Pulse Rate 88 Respiratory 20 Rate Blood Pressure 112/72 O2 Sat by Pulse 99 Oximetry Medical Decision Making - Medical Decision Making Visual acuity testing done by nurse. No foreign body visible on inspection bilaterally. No foreign body visible when eyelids flipped bilaterally. There is a small erythematous papule visible at the inner/upper eyelid (when flipped) of the right eye consistent with a stye. Fluorescein eye exam negative bilaterally. Case discussed in detail with attending physician Dr. Naqvi. Disposition Clinical Impression: Stye Disposition: HOME SELF-CARE Condition: Good Instructions (If sedation given, give patient instructions): [facility] (ED) Additional Instructions: Follow-up with your PCP in 1 to 2 days. Use warm compresses 2-4 times per day for 5-10 minutes over your eyelids. Use non-tearing diluted baby shampoo (1:10 ratio) over your eyelashes/lid margins (do not use in your eye). You may use artificial tears if needed. Avoid using cosmetics in your eye area. Return to the emergency department if your symptoms worsen or other concerns. Is patient prescribed a controlled substance at d/c from ED?: No Referrals: Glendy Padilla MD [Primary Care Provider] - 1-2 days Time of Disposition: 16:13
[2018-10-30] MEDS ORDERED: PROPARACAINE 0.5% OPHTH DROPS 15 ML BTL BOTH EYES STA (15:41)
== END 2018-10-30 16:21 | disposition home or self-care (01) ==
LOC: EC 13:51
DX: H00.011 Hordeolum externum right upper eyelid (principal); J45.909 Unspecified asthma, uncomplicated; Z79.51 Long term (current) use of inhaled steroids; Z88.8 Allergy status to other drugs, medicaments and biological substances
CPT/HCPCS: 99283

== ENCOUNTER 2018-11-05 09:46 | Emergency (ER) | payer OTHER ==
[2018-11-05 09:51] VITALS: RESP 18
[2018-11-05] MEDS ORDERED: diphenhydrAMINE 50 MG/ML 1 ML VIAL IVP STA (10:17)
[2018-11-05] MEDS ORDERED: ACETAMINOPHEN IV (For NPO) 1,000 MG in EMPTY BAG 1 BAG IVPB ONE (10:17)
[2018-11-05] MEDS ORDERED: SODIUM CHLORIDE 0.9% 2,000 ML IV STA (10:17)
[2018-11-05] MEDS ORDERED: METOCLOPRAMIDE 5 MG/ML 2 ML VIAL IVP STA (10:17)
[2018-11-05] MEDS ORDERED: FAMOTIDINE 20 MG/2 ML VIAL IV STA (10:40)
--- NOTE | 2018-11-05 10:41 | ED ---
General Adult HPI - General Chief complaint: Nausea/Vomiting/Diarrhea Stated complaint: vomiting/lightheaded Time Seen by Provider: 11/05/18 10:04 Source: patient, RN notes reviewed Mode of arrival: ambulatory Limitations: no limitations - History of Present Illness Initial comments: 33-year-old female presents to the emergency department for a chief complaint of nausea and vomiting 5 days. Patient states she vomits every time she tries to eat or drink something. Patient is currently 7 weeks and has had similar problems in the past with pregnancies. Patient last had a period on September 17. Patient did try to call her [employer] IN [employer]SP[employer] but she was not in the office today. Patient states she is starting to feel somewhat dizzy. She denies dysuria. Patient denies any vaginal bleeding or lower abdominal cramping. She states pain is mostly in the upper abdomen. Patient has no other complaints at this time including shortness of breath, chest pain, headache, or visual changes. - Related Data Home Medications Medication Instructions Recorded Confirmed Albuterol Nebulized [Ventolin 2.5 mg INHALATION RT-QID PRN 04/08/14 11/05/18 Nebulized] Budesonide-Formot 160-4.5 Mcg 2 puff INHALATION RT-BID 04/08/14 11/05/18 [Symbicort 160-4.5 Mcg Inhaler] Albuterol Sulfate [Ventolin HFA] 1 - 2 puff INHALATION RT-Q6H PRN 04/09/1411/05 Allergies Allergy/AdvReac Type Severity Reaction Status Date / Time oxycodone HCl [From Percocet] AdvReac Mild Rapid Verified 11/05/18 10:24 Heart Rate Review of Systems ROS Statement: Those systems with pertinent positive or pertinent negative responses have been documented in the HPI. ROS Other: All systems not noted in ROS Statement are negative. Past Medical History Past Medical History: Asthma, GERD/Reflux Additional Past Medical History / Comment(s): chronic severe asthma,has a high heart rate at times,daily steroid History of Any Multi-Drug Resistant Organisms: None Reported Past Surgical History: Section Additional Past Surgical History / Comment(s): ovarian surgery Past Anesthesia/Blood Transfusion Reactions: Postoperative Nausea & Vomiting ( PONV) Additional Past Anesthesia/Blood Transfusion Reaction / Comment(s): no hx blood transfusion Past Psychological History: No Psychological Hx Reported Smoking Status: Never smoker Past Alcohol Use History: None Reported Past Drug Use History: None Reported - Past Family History Father Family Medical History: Diabetes Mellitus Mother Family Medical History: Diabetes Mellitus, Hypertension Additional Family Medical History / Comment(s): Asthma: cousins, aunts, neices, grandmother at 46yr of asthma. General Exam Limitations: no limitations General appearance: alert, in no apparent distress Head exam: Present: atraumatic, normocephalic, normal inspection Eye exam: Present: normal appearance, PERRL, EOMI. Absent: scleral icterus, conjunctival injection, periorbital swelling ENT exam: Present: normal exam, mucous membranes moist Neck exam: Present: normal inspection, full ROM. Absent: tenderness, meningismus, lymphadenopathy Respiratory exam: Present: normal lung sounds bilaterally. Absent: respiratory distress, wheezes, rales, rhonchi, stridor Cardiovascular Exam: Present: regular rate, normal rhythm, normal heart sounds. Absent: systolic murmur, diastolic murmur, rubs, gallop, clicks GI/Abdominal exam: Present: soft, tenderness (minimal enderness noted to the generalized upper abdomen worse in the epigastric area, neg iverson sign. abdomen is soft without gaurding), normal bowel sounds. Absent: distended, guarding, rebound, rigid Neurological exam: Present: alert, oriented X3, CN II-XII intact Psychiatric exam: Present: normal affect, normal mood Course Vital Signs 11/05/18 09:47 Temperature 97.9 F Pulse Rate 103 H Respiratory 18 Rate Blood Pressure 122/67 O2 Sat by Pulse 99 Oximetry - Reevaluation(s) Reevaluation #1: 11/05/18 10:37 I did discuss the patient that nothing is 100% safe in for nausea. Patient aware of this, would still like Reglan at this time. Medical Decision Making - Medical Decision Making 33-year-old female presents to the emergency department for a chief complaint of nausea and vomiting. Patient states this has happened in previous pregnancies. Patient also has upper abdominal pain. On exam patient has mild tenderness noted in the upper abdomen the abdomen is soft. CBC and CMP unremarkable. Urine does show 2+ ketones, patient given 2 L of fluids. Patient not many of any lower abdominal pain so ultrasound was not initially ordered. However hCG Quant is 225,000. Because of this ultrasound was ordered which shows likely 8 week IUP. Nausea controlled at this time. Patient is feeling better. Patient will be discharged home. She does have an appointment tomorrow with Dr. Ricci that she will attend. She agrees to return here if she has any worsening symptoms. - Lab Data Result diagrams: 11/05/18 10:45 11/05/18 10:45 Lab Results 11/05/18 11/05/18 11/05/18 Range/Units 10:45 10:45 10:45 WBC 8.5 (3.8-10.6) k/uL RBC 4.40 (3.80-5.40) m/uL Hgb 13.4 (11.4-16.0) gm/dL Hct 39.2 (34.0-46.0) % MCV 89.1 (80.0-100.0) fL MCH 30.4 (25.0-35.0) pg MCHC 34.1 (31.0-37.0) g/dL RDW 13.2 (11.5-15.5) % Plt Count 256 (150-450) k/uL Neutrophils % 76 % Lymphocytes % 15 % Monocytes % 4 % Eosinophils % 2 % Basophils % 1 % Neutrophils # 6.5 (1.3-7.7) k/uL Lymphocytes # 1.3 (1.0-4.8) k/uL Monocytes # 0.4 (0-1.0) k/uL Eosinophils # 0.2 (0-0.7) k/uL Basophils # 0.0 (0-0.2) k/uL Sodium 138 (137-145) mmol/L Potassium 4.3 (3.5-5.1) mmol/L Chloride 106 (98-107) mmol/L Carbon Dioxide 22 (22-30) mmol/L Anion Gap 10 mmol/L BUN 10 (7-17) mg/dL Creatinine 0.61 (0.52-1.04) mg/dL Est GFR (CKD-EPI)AfAm >90 (>60 ml/min/1.73 sqM) Est GFR (CKD-EPI)NonAf >90 (>60 ml/min/1.73 sqM) Glucose 82 (74-99) mg/dL Calcium 9.3 (8.4-10.2) mg/dL Total Bilirubin 0.9 (0.2-1.3) mg/dL AST 30 (14-36) U/L ALT 42 (9-52) U/L Alkaline Phosphatase 60 (38-126) U/L Total Protein 7.1 (6.3-8.2) g/dL Albumin 4.2 (3.5-5.0) g/dL Amylase 66 (30-110) U/L Lipase 111 (23-300) U/L HCG, Quant >905046.0 mIU/mL Urine Color Urine Appearance (Clear) Urine pH (5.0-8.0) Ur Specific [place] (1.001-1.035) Urine Protein (Negative) Urine Glucose (UA) (Negative) Urine Ketones (Negative) Urine Blood (Negative) Urine Nitrite (Negative) Urine Bilirubin (Negative) Urine Urobilinogen (<2.0) mg/dL Ur Leukocyte Esterase (Negative) Urine WBC (0-5) /hpf Ur Squamous Epith Cells (0-4) /hpf Urine Mucus (None) /hpf Urine HCG, Qual Detected (Not Detectd) 11/05/18 Range/Units 10:45 WBC (3.8-10.6) k/uL RBC (3.80-5.40) m/uL Hgb (11.4-16.0) gm/dL Hct (34.0-46.0) % MCV (80.0-100.0) fL MCH (25.0-35.0) pg MCHC (31.0-37.0) g/dL RDW (11.5-15.5) % Plt Count (150-450) k/uL Neutrophils % % Lymphocytes % % Monocytes % % Eosinophils % % Basophils % % Neutrophils # (1.3-7.7) k/uL Lymphocytes # (1.0-4.8) k/uL Monocytes # (0-1.0) k/uL Eosinophils # (0-0.7) k/uL Basophils # (0-0.2) k/uL Sodium (137-145) mmol/L Potassium (3.5-5.1) mmol/L Chloride (98-107) mmol/L Carbon Dioxide (22-30) mmol/L Anion Gap mmol/L BUN (7-17) mg/dL Creatinine (0.52-1.04) mg/dL Est GFR (CKD-EPI)AfAm (>60 ml/min/1.73 sqM) Est GFR (CKD-EPI)NonAf (>60 ml/min/1.73 sqM) Glucose (74-99) mg/dL Calcium (8.4-10.2) mg/dL Total Bilirubin (0.2-1.3) mg/dL AST (14-36) U/L ALT (9-52) U/L Alkaline Phosphatase (38-126) U/L Total Protein (6.3-8.2) g/dL Albumin (3.5-5.0) g/dL Amylase (30-110) U/L Lipase (23-300) U/L HCG, Quant mIU/mL Urine Color Yellow Urine Appearance Cloudy H (Clear) Urine pH 6.0 (5.0-8.0) Ur Specific [place] 1.036 H (1.001-1.035) Urine Protein 1+ H (Negative) Urine Glucose (UA) Negative (Negative) Urine Ketones 2+ H (Negative) Urine Blood Negative (Negative) Urine Nitrite Negative (Negative) Urine Bilirubin Negative (Negative) Urine Urobilinogen 2.0 (<2.0) mg/dL Ur Leukocyte Esterase Negative (Negative) Urine WBC 3 (0-5) /hpf Ur Squamous Epith Cells 11 H (0-4) /hpf Urine Mucus Many H (None) /hpf Urine HCG, Qual (Not Detectd) Disposition Clinical Impression: Nausea and vomiting during Disposition: HOME SELF-CARE Condition: Good Instructions (If sedation given, give patient instructions): Nausea and Vomiting in (ED) Additional Instructions: Please follow-up with Dr. Ricci your appointment tomorrow. Take Tylenol for pain. Return here if you have any worsening symptoms. Is patient prescribed a controlled substance at d/c from ED?: No Referrals: Glendy Padilla MD [Primary Care Provider] - 1-2 days Dian Ricci DO [Doctor of Osteopathic Medicine] - 1-2 days Time of Disposition: 14:21
[2018-11-05 11:09] LABS: Basophils % (A) 1 %; Eosinophils # (A) 0.2 k/uL (0-0.7); Eosinophils % (A) 2 %; HCT 39.2 % (34.0-46.0); HGB 13.4 gm/dL (11.4-16.0); Lymphocytes # (A) 1.3 k/uL (1.0-4.8); Lymphocytes % (A) 15 %; MCH 30.4 pg (25.0-35.0); MCHC 34.1 g/dL (31.0-37.0); MCV 89.1 fL (80.0-100.0); Mean Platelet Volume 6.9; Monocytes # (A) 0.4 k/uL (0-1.0); Monocytes % (A) 4 %; Neutrophils # (A) 6.5 k/uL (1.3-7.7); Neutrophils % (A) 76 %; Platelet Count 256 k/uL (150-450); RDW 13.2 % (11.5-15.5); WBC 8.5 k/uL (3.8-10.6)
[2018-11-05 11:11] LABS: Appearance,Urine Cloudy (Clear); Bilirubin,Urine Negative (Negative); Blood,Urine Negative (Negative); Color,Urine Yellow; Glucose,Urine (UA) Negative (Negative); Ketones,Urine 2+ (Negative); Leukocyte Esterase,Urine Negative (Negative); Mucus,Urine Many /hpf; Nitrite,Urine Negative (Negative); Protein,Urine 1+ (Negative); Specific Gravity,Urine 1.036 (1.001-1.035); Squamous Epithelial Cell,Urine 11 /hpf (0-4); WBC,Urine 3 /hpf (0-5)
[2018-11-05 11:19] LABS: ALT 42 U/L (9-52); AST 30 U/L (14-36); Albumin 4.2 g/dL (3.5-5.0); Alkaline Phosphatase 60 U/L (38-126); Amylase 66 U/L (30-110); Anion Gap 10 mmol/L; Blood Urea Nitrogen 10 mg/dL (7-17); Calcium 9.3 mg/dL (8.4-10.2); Carbon Dioxide 22 mmol/L (22-30); Chloride 106 mmol/L (98-107); Glucose 82 mg/dL (74-99); Lipase 111 U/L (23-300); Potassium 4.3 mmol/L (3.5-5.1); Sodium 138 mmol/L (137-145); Total Bilirubin 0.9 mg/dL (0.2-1.3); Total Protein 7.1 g/dL (6.3-8.2)
[2018-11-05] MEDS ORDERED: ONDANSETRON 4 MG/2 ML VIAL IVP STA (11:43)
[2018-11-05 12:43] LABS: HCG,Quantitative Serum >225000.0 mIU/mL
--- NOTE | 2018-11-05 13:50 | US ---
EXAMINATION TYPE: Transabdominal DATE OF EXAM: 11/05/2018 1:40 PM COMPARISON: NONE CLINICAL HISTORY: 33-year-old female Pain. Abdomen pain and N/V x 5 days, 3, para 2, history of 2 c-sections EXAM PERFORMED: Transabdominal (TA) FINDINGS: EXAM MEASUREMENTS: GESTATIONAL AGE / DATING Physician Established: Not established yet Dates by LMP: (7 weeks/2 days) EDC: 06/22/2019 Dates by First Scan: This is 1st scan Dates by Current Scan for: ( 8 weeks/0 days (+/- 5 days)) EDC: 06/17/2019 MATERNAL ANATOMY Uterus: 10.5 x 5.6 x 6.8cm, anteverted Right Ovary: 2.7 x 1.5 x 1.6cm Left Ovary: 3.8 x 1.8 x 3.2cm Post CDS / Adnexa: small amount of free fluid seen in posterior cul de sac Presence of free fluid: yes Presence of corpus luteal cyst: left ovary: 1.8 x 1.6 x 2.0cm hypoechoic area with peripheral vascula rity Presence of subchorionic bleed: no GESTATION / SURVEY CRL: 1.6cm (8 weeks/0 days) Yolk Sac (normal less than 6mm): 3.4mm Heart Rate: 167 bpm Rhythm: Normal IUP: Viable IUP Date of LMP: 09/15/2018 Beta HcG (if available): >225,000.0 Road Inspector notes: Viable single IUP measuring 8 weeks 0 days with a heart rate of 167bpm and an yon mated delivery date of 06/17/2019. IMPRESSION: 1. Single live intrauterine with estimated gestational age of 7 weeks 2 days by LMP. Curren t ultrasound biometry is larger and just barely concordant (8 weeks 0 days). Clinically correlate. 2. Corpus luteum within the left ovary. 3. Small amount of pelvic free fluid probably physiologic. 4. Complete survey recommended at 18-20 weeks.
[2018-11-05 14:52] VITALS: BP 103/62; PULSE 81; TEMP 98.3
[2018-11-05] MEDS ORDERED: ONDANSETRON 4 MG ODT STARTER PACK 2 TAB BTL PO STA (15:01)
== END 2018-11-05 15:05 | disposition home or self-care (01) ==
LOC: EC 09:46
DX: O21.9 Vomiting of pregnancy, unspecified (principal); O99.89 Other specified diseases and conditions complicating pregnancy, childbirth and the puerperium; R42 Dizziness and giddiness; R10.84 Generalized abdominal pain; O99.511 Diseases of the respiratory system complicating pregnancy, first trimester; J45.909 Unspecified asthma, uncomplicated; Z3A.01 Less than 8 weeks gestation of pregnancy; Z79.51 Long term (current) use of inhaled steroids; Z88.8 Allergy status to other drugs, medicaments and biological substances
CPT/HCPCS: 36415; 80053; 82150; 83690; 85025; 81001; 81025; 84702; 76801; 99284; 96374; 96375 ×4; 96361 ×2; J1200; J2765; J2405; J0131; S0119

== ENCOUNTER 2019-04-25 14:15 | Observation (INO) | payer OTHER ==
[2019-04-25 14:53] LABS: Appearance,Urine Clear (Clear); Bilirubin,Urine Negative (Negative); Blood,Urine Negative (Negative); Color,Urine Yellow; Glucose,Urine (UA) Negative (Negative); Ketones,Urine Negative (Negative); Leukocyte Esterase,Urine Moderate (Negative); Mucus,Urine Rare /hpf; Nitrite,Urine Negative (Negative); PH, Urine 7.5 (5.0-8.0); Protein,Urine Negative (Negative); RBC,Urine 4 /hpf (0-5); Specific Gravity,Urine 1.007 (1.001-1.035); Squamous Epithelial Cell,Urine <1 /hpf (0-4); Urobilinogen,Urine <2.0 mg/dL (<2.0); WBC,Urine 1 /hpf (0-5)
--- NOTE | 2019-04-25 16:25 | P.HPOB ---
History of Present Illness H&P Date: 04/25/19 Chief Complaint: Abdominal pain Rodney is a 34-year-old at 32 weeks gestation arrives complaining of abdominal pain. She relates the pain began yesterday mildly but has worsened and is significant worse today. She is laying in bed and shows signs of discomfort. She relates that the pain is worse in the left flank and lower abdomen moving around to the front but it does come across the upper part of her abdomen feels like a tightening sensation when that happens she has less pain but still some pain moving inferiorly along the right anterior abdominal wall. She is not trace any contractions and she was closed and thick on digital exam. Get a category 1 tracing. Urinalysis was run and is unremarkable. Her vital signs are otherwise stable and she is afebrile. In discussing pain with her she relates that is coming not necessarily and true ways but arise in falls over course of several minutes. She is relating to me that she's had constipation has been significant throughout the and although she had a very small very hard stool earlier today she cannot tell me when she had a bowel movement prior to this. She relates that she does drink quite a bit of water but has taken no stool softeners despite being advised do so by her physician Dr. Ricci. At this time a ultrasound of the abdomen is pending. On physical exam her heart is regular and her lungs are clear. She does have a history of asthma for which Joann she was last for but at this time there her lungs are clear and she denies any shortness of breath or wheezing. Her abdomen is soft. Her uterus is soft. There are no contractions that are palpated nor are there any showing up on the monitor. She does have pain in the left flank running around and there is pain with movement to that area. There is no rebound or rigidity however. An ultrasound again is pending. I'm concerned at least as far as her symptoms go it may be just significant constipation although other sources for instance an ovarian cyst/mass or torsion or other more unusual source for the pain needs to be ruled out. Assessment intrauterine 32 weeks with abdominal pain Plan IV hydration likely observation tonight and if ultrasound is normal showing no other findings then likely due clock suppository or other stool softener to hopefully allow her to have bowel movements relieve some of the pressure Past Medical History Past Medical History: Asthma, GERD/Reflux Additional Past Medical History / Comment(s): chronic severe asthma,has a high heart rate at times,daily steroid History of Any Multi-Drug Resistant Organisms: None Reported Past Surgical History: Section Additional Past Surgical History / Comment(s): ovarian surgery Past Anesthesia/Blood Transfusion Reactions: Postoperative Nausea & Vomiting (PONV) Additional Past Anesthesia/Blood Transfusion Reaction / Comment(s): no hx blood transfusion Smoking Status: Never smoker - Past Family History Father Family Medical History: Diabetes Mellitus Mother Family Medical History: Diabetes Mellitus, Hypertension Additional Family Medical History / Comment(s): Asthma: cousins, aunts, neices, grandmother at 46yr of asthma. Medications and Allergies Home Medications Medication Instructions Recorded Confirmed Type Albuterol Nebulized [Ventolin 2.5 mg INHALATION RT-QID PRN 04/08/14 04/25/19 History Nebulized] Budesonide-Formot 160-4.5 Mcg 2 puff INHALATION RT-BID 04/08/14 04/25/19 History [Symbicort 160-4.5 Mcg Inhaler] Albuterol Sulfate [Ventolin HFA] 1 - 2 puff INHALATION RT-Q6H PRN 04/09/14 04/25/19 History Allergies Allergy/AdvReac Type Severity Reaction Status Date / Time oxycodone HCl [From Percocet] AdvReac Mild Rapid Verified 04/25/19 14:41 Heart Rate Exam Osteopathic Statement: *. No significant issues noted on an osteopathic structural exam other than those noted in the History and Physical/Consult. Vital Signs Temp Pulse Resp BP Pulse Ox 04/25/19 15:00 97.8 F 99 18 97/63 100 Intake and Output 04/25/19 04/25/19 04/25/19 06:59 14:59 22:59 Other: Weight 78.925 kg Results Abnormal Lab Results - Last 24 Hours (Table) 04/25/19 Range/Units 14:35 Ur Leukocyte Esterase Moderate H (Negative) Urine Mucus Rare H (None) /hpf
[2019-04-25] MEDS ORDERED: LACTATED RINGERS 1,000 ML IV ONE (16:30)
[2019-04-25] MEDS ORDERED: LACTATED RINGERS 1,000 ML IV SCH (16:30)
--- NOTE | 2019-04-25 18:05 | US ---
EXAMINATION TYPE: US kidneys/renal and bladder DATE OF EXAM: 04/25/2019 COMPARISON: US CLINICAL HISTORY: flank pain. Left flank pain x 2 days in ; assess left ovary too per jamila egan's RN as requested by Dr Townsend. EXAM MEASUREMENTS: Right Kidney: 10.9 x 5.8 x 4.8 cm Left Kidney: 10.6 x 4.9 x 6.3 cm Post Void Residual Volume: not assessed for inpatient Right Kidney: moderate hydronephrosis Left Kidney: mild hydronephrosis; very small, hyperechoic focus = 0.4 x 0.4 x 0.2cm with posterior sh adowing noted mid lateral kidney Bladder: wnl Bilateral Jets seen: yes Left ovary: size = 4.4 x 2.3 x 2.4cm with ovarian follicular cyst = 2.1 x 1.2 x 0.9cm. PW Arterial a nd Venous Doppler waveforms and color flow is present in left ovary. IMPRESSION: There is right-sided hydronephrosis improved compared to old exam. Sonolucent urinary bladder. Bilate ral ureteral jets are present. Mild left-sided hydronephrosis unchanged.
[2019-04-25 18:38] VITALS: BMI 30.8
--- NOTE | 2019-04-25 19:09 | XR ---
EXAMINATION TYPE: XR abdomen 1V DATE OF EXAM: 04/25/2019 COMPARISON: NONE HISTORY: . Constipation. TECHNIQUE: 2 views upright FINDINGS: There is no sign of intestinal obstruction or pneumoperitoneum. Fecal pattern is fairly nor mal. Lung bases are clear. There is a single fetus with cephalic presentation. The spine is on the le ft side. There are no pathologic calcifications over the kidneys. There is no sign of a mass. IMPRESSION: Nonacute abdomen.
[2019-04-25] MEDS ORDERED: BUTORPHANOL 1 MG/ML 1 ML VIAL IV PRN (19:21)
[2019-04-25] MEDS ORDERED: DOCUSATE 100 MG CAP PO SCH (19:30)
[2019-04-25] MEDS ORDERED: diphenhydrAMINE 50 MG/ML 1 ML VIAL IVP STA (20:34)
[2019-04-25] MEDS ORDERED: ALBUTEROL NEBULIZED 2.5 MG/3 ML INHALATION STA (20:34)
--- NOTE | 2019-04-25 21:55 | P.PN ---
Progress Note - Text Progress Note Date: 04/25/19 Grossly seen and evaluated again. She is significantly short of breath this time and her lungs bilaterally sounds tight a stat reading treatment was ordered and set consultation with pulmonary was done. They have entered orders for treatment. I did speak with maternal medicine who have advised continuation of what we're trying to accomplish. We will order a CAT scan without contrast and check labs including CMP and CBC and ABG. At this time I still have no real definitive answers to why she is having the amount of pain she is having. In discussing with she and her again now the pain which initially was left flank and across her upper abdomen and even into her right si de is now completely on her left side slightly above the iliac crest on her back but does rotate around the front some. There is no evidence for a stone on either ultrasound or plain film however. There is also no blood in her urine. Her vital signs again are stable her blood pressure is normal and she is pulse ox and anywhere from 98-100% on room air. This is despite the fact that she is claiming to be extremely short of breath and wheezing audibly. If I am unable to determine a primary cause for her pain and her pain is persisting and we are able to get her breathing improved, we'll plan transfer to [facility] for more thorough evaluation and recommendations.
[2019-04-25] MEDS ORDERED: BETAMET ACET-BETAMETH SOD PHOS 6 MG/ML VIAL IM SCH (22:00)
--- NOTE | 2019-04-25 22:06 | CT ---
EXAMINATION TYPE: CT abdomen pelvis wo con DATE OF EXAM: 04/25/2019 COMPARISON: 03/27/2015 HISTORY: Severe abdominal pain CT DLP: 608.5 mGycm Automated exposure control for dose reduction was used. TECHNIQUE: Helical acquisition of images was performed from the lung bases through the pelvis. FINDINGS: Exam performed with no contrast. Lung bases are clear. Heart appears normal. Liver spleen pancreas gallbladder appear normal. Bile ducts are not dilated. There is no adrenal mass. Stomach appears fairly normal. There is bilateral hydronephrosis slightly w orse on the right side. The bladder distends smoothly. I see no sign of a definite ureteral calculus. There is intrauterine fetus with cephalic presentation. There is no inguinal hernia. There is no mesenteric edema. There is no ascites or free air. Appendix appears normal. Placenta appe ars anterior. Lumbar spine is intact. Bony pelvis is intact. IMPRESSION: NORMAL APPENDIX. BILATERAL HYDRONEPHROSIS WITHOUT RENAL ATROPHY. 1 MM SCATTERED RIGHT RENAL CALCULI. NO DEFINITE URETERAL CALCULUS SEEN.
[2019-04-25 22:29] LABS: Basophils % (A) 0 %; Eosinophils # (A) 0.3 k/uL (0-0.7); Eosinophils % (A) 3 %; HCT 34.7 % (34.0-46.0); HGB 11.3 gm/dL (11.4-16.0); Lymphocytes # (A) 1.5 k/uL (1.0-4.8); Lymphocytes % (A) 16 %; MCH 29.4 pg (25.0-35.0); MCHC 32.5 g/dL (31.0-37.0); MCV 90.7 fL (80.0-100.0); Mean Platelet Volume 7.5; Monocytes # (A) 0.5 k/uL (0-1.0); Monocytes % (A) 5 %; Neutrophils # (A) 7.2 k/uL (1.3-7.7); Neutrophils % (A) 75 %; Platelet Count 158 k/uL (150-450); RBC 3.82 m/uL (3.80-5.40); RDW 14.4 % (11.5-15.5); WBC 9.6 k/uL (3.8-10.6)
[2019-04-25 22:38] LABS: ALT 19 U/L (9-52); AST 22 U/L (14-36); African American GFR (CKD) >90 (>60 ml/min/1.73 sqM); Albumin 3.3 g/dL (3.5-5.0); Alkaline Phosphatase 117 U/L (38-126); Anion Gap 8 mmol/L; Blood Urea Nitrogen 6 mg/dL (7-17); Calcium 8.6 mg/dL (8.4-10.2); Carbon Dioxide 21 mmol/L (22-30); Chloride 108 mmol/L (98-107); Glucose 81 mg/dL (74-99); Sodium 137 mmol/L (137-145); Total Bilirubin 0.6 mg/dL (0.2-1.3); Total Protein 5.9 g/dL (6.3-8.2)
[2019-04-25 22:49] LABS: ABG Base Excess -1.4 mmol/L; ABG HCO3 22 mmol/L (21-25); ABG Oxygen Saturation 99.1 % (94-97); ABG PCO2 31 mmHg (35-45); ABG PH 7.46 (7.35-7.45); ABG PO2 124 mmHg (83-108); ABG TCO2 23 mmol/L (19-24); Allen Test Performed? Yes
[2019-04-26] MEDS ORDERED: IPRATROPIUM-ALBUTEROL 3 ML NEB INHALATION SCH
[2019-04-26] MEDS ORDERED: methylPREDNISolone SOD SUCCI 125 MG/2 ML VIAL IV SCH
[2019-04-26 00:24] VITALS: BP 106/65; PULSE 112; RESP 18; TEMP 97.9
[2019-04-26] MEDS ORDERED: FORMOTEROL FUMARATE 20 MCG/2 ML NEBU INHALATION SCH (08:00)
[2019-04-26] MEDS ORDERED: BUDESONIDE 1 MG/2 ML NEBU INHALATION SCH (08:00)
--- NOTE | 2019-04-26 10:15 | P.TRANS ---
Providers Date of admission: 04/25/19 18:30 Expected date of discharge: 04/25/19 Attending physician: Dian Ricci Consults: 04/25/19 20:55 Consult Physician Stat Consulting Provider: Karen Soto Consult Reason/Comments: Asthma Do you want consulting provider notified?: Yes Primary care physician: Stated None Hospital Course: Patient was transferred to [facility] for maternal medicine evaluation due to continued pain and unknown etiology. Despite multiple radiologic and laboratory evaluations I could not elucidate what her pain was. As she had a very bad response to the medication we are trying to use for pain control and her symptoms did not seem to improve at all in with her being only 32 weeks she was transferred to a higher risk Center so that if she wasn't needed to be delivered she and her baby to be at the same place. At this time I don't have a clear explanation for her pain, it may be musculoskeletal but since she is very difficult to evaluate and she is moving around a lot its difficult to say if she is in spasm with her back or if she has some other pinched nerve or something else going on and I cannot find any other possible reasons for her pain at this time but again with her being so much pain she is transferred to [facility] for a second opinion. At the time of her discharge her vital signs were stable she was afebrile. Heart was regular lungs while having some wheezes from her asthma were improved significantly over earlier. She was pulse ox and 99% and her ABG revealed mild respiratory alkalosis only. A category 1 tracing was also noted. Plan - Transfer Summary Discharge Disposition: TRANSFER TO [facility]
== END 2019-04-26 00:40 | disposition short-term general hospital (02) ==
LOC: FBPOP 14:15 → 4FBP 18:30
PROVIDERS: ADMIT Obstetrics & Gynecology; ATTEND Obstetrics & Gynecology
DX: O99.613 Diseases of the digestive system complicating pregnancy, third trimester (principal); R10.10 Upper abdominal pain, unspecified; K59.00 Constipation, unspecified; R10.30 Lower abdominal pain, unspecified; K21.9 Gastro-esophageal reflux disease without esophagitis; O99.513 Diseases of the respiratory system complicating pregnancy, third trimester; J45.909 Unspecified asthma, uncomplicated; Z3A.32 32 weeks gestation of pregnancy; E87.3 Alkalosis; Z79.899 Other long term (current) drug therapy; Z79.51 Long term (current) use of inhaled steroids; Z88.5 Allergy status to narcotic agent; Z83.3 Family history of diabetes mellitus; Z82.49 Family history of ischemic heart disease and other diseases of the circulatory system; O09.523 Supervision of elderly multigravida, third trimester
CPT/HCPCS: 59025; 96361; 96374; 96375; 96372; 94640 ×2; 36600; 82731; 80053; 82805; 85025; 81001; 74018; 76770; 74176; G0463; G0378; J1200; J0702; J2930; J0595; 96360; 99213

== ENCOUNTER 2019-05-26 10:08 | Inpatient (IN) | payer OTHER ==
[2019-05-26] MEDS ORDERED: ALBUTEROL NEBULIZED 2.5 MG/3 ML INHALATION STA (11:05)
[2019-05-26] MEDS ORDERED: CITRIC ACID-SODIUM CITRATE 15 ML CUP PO ONE (12:40)
[2019-05-26] MEDS: LACTATED RINGERS 1,000 ML IV SCH ×2 (13:00→20:41)
[2019-05-26 13:06] LABS: Basophils % (A) 0 %; Eosinophils # (A) 0.1 k/uL (0-0.7); Eosinophils % (A) 1 %; HCT 33.8 % (34.0-46.0); HGB 11.3 gm/dL (11.4-16.0); Lymphocytes # (A) 1.2 k/uL (1.0-4.8); Lymphocytes % (A) 13 %; MCH 30.2 pg (25.0-35.0); MCHC 33.5 g/dL (31.0-37.0); MCV 90.2 fL (80.0-100.0); Mean Platelet Volume 7.9; Monocytes # (A) 0.4 k/uL (0-1.0); Monocytes % (A) 5 %; Neutrophils # (A) 7.5 k/uL (1.3-7.7); Neutrophils % (A) 80 %; Platelet Count 172 k/uL (150-450); RBC 3.74 m/uL (3.80-5.40); RDW 14.7 % (11.5-15.5); WBC 9.4 k/uL (3.8-10.6)
[2019-05-26] MEDS ORDERED: OXYTOCIN 10 UNIT/ML 1 ML VIAL ONE (13:20)
[2019-05-26] MEDS ORDERED: MORPHINE SULFATE (PF) 0.3 MG/0.3 ML SYR ONE (13:20)
[2019-05-26] MEDS ORDERED: PHENYLEPHRINE-0.9% NACL SYG 1 MG/10 ML SYRINGE ONE (13:20)
[2019-05-26] MEDS ORDERED: NALBUPHINE 10 MG/ML (1 ML AMP) ONE (13:20)
[2019-05-26] MEDS ORDERED: ONDANSETRON 4 MG/2 ML VIAL ONE (13:20)
[2019-05-26] MEDS ORDERED: diphenhydrAMINE 25 MG CAP PO PRN (13:54)
[2019-05-26] MEDS ORDERED: SIMETHICONE 80 MG CHEWABLE PO PRN (13:54)
[2019-05-26] MEDS ORDERED: LANOLIN CREAM 5 GM TUBE TOPICAL PRN (13:54)
[2019-05-26] MEDS ORDERED: NALOXONE 0.4 MG/ML 1 ML VIAL IV PRN ×2 (13:54→15:31)
[2019-05-26] MEDS ORDERED: diphenhydrAMINE 50 MG/ML 1 ML VIAL IVP PRN (13:54)
[2019-05-26] MEDS ORDERED: ONDANSETRON 4 MG/2 ML VIAL IVP PRN (13:54)
[2019-05-26] MEDS ORDERED: ZOLPIDEM 5 MG TAB PO PRN (13:54)
[2019-05-26] MEDS ORDERED: METOCLOPRAMIDE 5 MG/ML 2 ML VIAL IVP PRN (13:54)
[2019-05-26 13:59] VITALS: BMI 32.1
[2019-05-26] MEDS ORDERED: OXYTOCIN 20 UNITS/1000 ML NS 1,000 ML IV SCH (14:00)
[2019-05-26] MEDS ORDERED: ALBUTEROL INHALER 60 PUFF/8 GM INHALER INHALATION PRN (15:21)
[2019-05-26] MEDS: ALBUTEROL NEBULIZED 2.5 MG/3 ML INHALATION PRN (15:40)
[2019-05-26] MEDS: ACETAMINOPHEN IV (For NPO) 1,000 MG in EMPTY BAG 1 BAG IVPB PRN ×2 (15:41→20:38)
[2019-05-26] MEDS: diphenhydrAMINE 50 MG/ML 1 ML VIAL IVP PRN (16:04)
[2019-05-26] MEDS: HYDROmorphone 0.5 MG/0.5 ML SYRINGE IVP PRN (17:08)
[2019-05-26] MEDS ORDERED: CALCIUM CARBONATE 500 MG CHEWABLE PO PRN (17:13)
[2019-05-26] MEDS: NALBUPHINE 10 MG/ML (1 ML AMP) IV PRN ×2 (18:33→22:02)
[2019-05-26] MEDS: MORPHINE SULFATE 2 MG/ML SYRINGE IVP PRN ×2 (18:38→22:25)
[2019-05-26] MEDS: SYMBICORT 160-4.5 MCG INHALER INHALATION SCH (20:16)
[2019-05-26] MEDS: SENNOSIDES-DOCUSATE SODIUM 1 EACH TAB PO SCH (23:47)
[2019-05-27] MEDS: HYDROmorphone 0.5 MG/0.5 ML SYRINGE IVP PRN ×2 (00:36→06:43)
[2019-05-27] MEDS: diphenhydrAMINE 50 MG/ML 1 ML VIAL IVP PRN (00:37)
[2019-05-27] MEDS: MORPHINE SULFATE 2 MG/ML SYRINGE IVP PRN (02:57)
[2019-05-27 06:47] LABS: Anisocytosis Slight; Basophils % (A) 0 %; Eosinophils # (A) 0.1 k/uL (0-0.7); Eosinophils % (A) 1 %; HGB 11.2 gm/dL (11.4-16.0); Lymphocytes # (A) 1.2 k/uL (1.0-4.8); Lymphocytes % (A) 12 %; MCH 30.8 pg (25.0-35.0); MCV 90.4 fL (80.0-100.0); Mean Platelet Volume 8.3; Monocytes # (A) 0.5 k/uL (0-1.0); Monocytes % (A) 5 %; Neutrophils # (A) 8.4 k/uL (1.3-7.7); Neutrophils % (A) 81 %; Platelet Count 169 k/uL (150-450); RBC 3.65 m/uL (3.80-5.40); RDW 16.1 % (11.5-15.5); WBC 10.4 k/uL (3.8-10.6)
--- NOTE | 2019-05-27 07:32 | P.HPOB ---
History of Present Illness H&P Date: 05/26/19 Chief Complaint: Labor 34 year old presents at 37 weeks 4 days complaining of contractions. Her cervix was closed and changed to 1cm dilated. She is peter every few minutes. heart tones are 130 and category 1. she had a previous and will have a repeat. Review of Systems All systems: negative Constitutional: Denies chills, Denies fever Eyes: denies blurred vision, denies pain Ears, nose, mouth and throat: Denies headache, Denies sore throat Cardiovascular: Denies chest pain, Denies shortness of breath Respiratory: Denies cough Gastrointestinal: Denies abdominal pain, Denies diarrhea, Denies nausea, Denies vomiting Genitourinary: Denies dysuria, Denies hematuria Musculoskeletal: Denies myalgias Integumentary: Denies pruritus, Denies rash Neurological: Denies numbness, Denies weakness Psychiatric: Denies anxiety, Denies depression Endocrine: Denies fatigue, Denies weight change Past Medical History Past Medical History: Asthma, GERD/Reflux Additional Past Medical History / Comment(s): chronic severe asthma,has a high heart rate at times,daily steroid History of Any Multi-Drug Resistant Organisms: None Reported Past Surgical History: Section Additional Past Surgical History / Comment(s): ovarian surgery Past Anesthesia/Blood Transfusion Reactions: Postoperative Nausea & Vomiting (PONV) Additional Past Anesthesia/Blood Transfusion Reaction / Comment(s): no hx blood transfusion Past Psychological History: No Psychological Hx Reported Smoking Status: Never smoker Past Alcohol Use History: None Reported Past Drug Use History: None Reported - Past Family History Father Family Medical History: Diabetes Mellitus Mother Family Medical History: Diabetes Mellitus, Hypertension Additional Family Medical History / Comment(s): Asthma: cousins, aunts, neices, grandmother at 46yr of asthma. Medications and Allergies Home Medications Medication Instructions Recorded Confirmed Type Albuterol Nebulized [Ventolin 2.5 mg INHALATION RT-QID PRN 04/08/14 05/26/19 History Nebulized] Budesonide-Formot 160-4.5 Mcg 2 puff INHALATION RT-BID 04/08/14 05/26/19 History [Symbicort 160-4.5 Mcg Inhaler] Albuterol Sulfate [Ventolin HFA] 1 - 2 puff INHALATION RT-Q6H PRN 04/09/14 05/26/19 History Allergies Allergy/AdvReac Type Severity Reaction Status Date / Time oxycodone HCl [From Percocet] AdvReac Mild Rapid Verified 04/25/19 14:41 Heart Rate Exam Osteopathic Statement: *. No significant issues noted on an osteopathic structural exam other than those noted in the History and Physical/Consult. Vital Signs Temp Pulse Pulse Resp BP Pulse Ox 05/27/19 06:09 18 95 05/27/19 04:00 98.3 F 96 18 90/56 97 05/27/19 00:00 98.2 F 111 H 18 106/55 97 05/26/19 20:24 95 05/26/19 20:17 98.4 F 123 H 19 109/56 95 05/26/19 18:03 18 05/26/19 16:17 16 98 05/26/19 16:08 97.8 F 109 H 16 106/63 100 05/26/19 15:51 104 H 05/26/19 15:42 100 05/26/19 15:38 106 H 20 125/84 100 05/26/19 15:31 20 100 05/26/19 15:08 102 H 20 109/71 98 05/26/19 14:53 94 18 103/62 98 05/26/19 14:38 95 16 105/57 98 05/26/19 14:23 97 16 103/56 98 05/26/19 14:08 98.0 F 95 18 103/58 98 05/26/19 12:50 98.2 F 116 H 17 106/59 97 05/26/19 11:31 108 H 05/26/19 11:20 100 05/26/19 10:37 98.2 F 116 H 16 106/59 97 Intake and Output 05/26/19 05/27/19 05/27/19 22:59 06:59 14:59 Intake Total 350 600 Output Total 2000 850 Balance -1650 -250 Intake: Intake, IV Titration 350 Amount ACETAMINOPHEN IV (For NPO 100 ) 1,000 mg In Empty Bag 1 bag @ 400 mls/hr IVPB Q6HR PRN Rx#:[id number] Oxytocin 20 Units/1000 ml 250 Ns 1,000 ml @ Per Protocol IV .Q0M SAMPSON Rx#: [id number] Oral 0 600 Output: Urine 1400 850 Uretheral (Rubio) 1200 Emesis 100 Estimated Blood Loss 500 Heart: RRR Lungs: CTAB Abdomen: soft, nontender Extremeties: neg alexander's Results Result Diagrams: 05/27/19 06:36 Abnormal Lab Results - Last 24 Hours (Table) 05/26/19 05/27/19 Range/Units 12:55 06:36 RBC 3.74 L 3.65 L (3.80-5.40) m/uL Hgb 11.3 L 11.2 L (11.4-16.0) gm/dL Hct 33.8 L 33.0 L (34.0-46.0) % RDW 16.1 H (11.5-15.5) % Neutrophils # 8.4 H (1.3-7.7) k/uL Assessment and Plan (1) Normal labor Current Visit: Yes Status: Acute Code(s): O80 - ENCOUNTER FOR FULL-TERM UNCOMPLICATED DELIVERY; Z37.9 - OUTCOME OF DELIVERY, UNSPECIFIED SNOMED Code(s): 94379384 (2) Previous section Current Visit: Yes Status: Acute Code(s): Z98.891 - HISTORY OF UTERINE SCAR FROM PREVIOUS SURGERY SNOMED Code(s): 952903116 Plan: 1. repeat low transverse
[2019-05-27] MEDS: SENNOSIDES-DOCUSATE SODIUM 1 EACH TAB PO SCH ×2 (08:31→20:59)
[2019-05-27] MEDS: HYDROcodone/APAP 7.5-325MG 1 EACH TAB PO PRN ×3 (08:31→20:59)
--- NOTE | 2019-05-27 09:11 | P.OP ---
Date of Procedure: 05/26/19 Preoperative Diagnosis: 1. at 37 weeks and 2 days 2. Labor 3. Previous section 2 Postoperative Diagnosis: 1. at 37 weeks and 2 days 2. Labor 3. Previous section 2 Procedure(s) Performed: Repeat low transverse Anesthesia: spinal Surgeon: Dian Ricci Dental Lab Technician #1: Kaiden Sam Estimated Blood Loss (ml): 500 IV fluids (ml): 800 Urine output (ml): 200 Pathology: none sent Condition: stable Disposition: floor Indications for Procedure: 34-year-old presented to triage complaining of contractions every few minutes. Her cervix changed from closed to 1 cm dilated, 70% effaced. heart tones were 130 with moderate variability and accelerations. Operative Findings: Viable female, Apgars 9, 9, weight 7 lbs. 15 oz. The lower uterine segment was very thin, otherwise normal uterus, tubes, ovaries. Description of Procedure: Patient was taken to the operating room where spinal anesthesia was found be adequate. She was prepped and draped in normal sterile fashion in dorsal supine position with a leftward tilt. Pfannenstiel skin incision was made the scalpel and carried through to the underlying layer of fascia with the scalpel. Fascia was incised in midline and carried bilaterally with the Hutchinson scissors. The superior aspect of the fascial incision was grasped with Layne clamps elevated and the underlying rectus muscles dissected off with the Hutchinson's. Attention was then turned to inferior aspect of same incision which in a similar fashion was grasped tented up and the underlying rectus muscles dissected off with the Hutchinson's. The rectus muscles were the midline and the peritoneum was identified tented up and entered sharply with the scalpel. The incision was extended superiorly and inferiorly with good visualization of the bladder. At this time and was noted that the lower uterine segment of the uterus was very thin, I could see the amniotic fluid through The uterus. A low transverse incision was then made on the uterus with the scalpel just superior to this thin area. This was carried bilaterally and digital manner. Infant's head delivered atraumatically, nose and mouth bulb suctioned, cord clamped and cut, handed off to waiting nurses. Apgars 9,9, weight 7 lbs. 15 oz. Placenta delivered manually, intact with three-vessel cord. The uterus is exteriorized and cleared of all clots and debris. The uterine incision was closed with 0 Vicryl in a running locked fashion. Hemostasis was assured. Both ovaries and tubes appeared normal. The uterus was placed back into the abdomen. The peritoneum was reapproximated using 2-0 Vicryl in a running fashion. The fascia was reapproximated using 0 Vicryl in a running fashion. The subcutaneous tissues closed with 3-0 Vicryl running fashion. The skin was closed chantell. Patient tolerated the procedure well, sponge and instrument counts were correct times 2 and she was taken to the recovery room in stable condition.
--- NOTE | 2019-05-27 09:13 | P.PNOBGPC ---
Subjective - Subjective Principal diagnosis: Status post repeat low transverse POD #1 Interval history: Patient seen and examined. She denies nausea, vomiting, chest pain, shortness of breath or calf pain. She is not passing flatus yet and slowly getting back to normal voiding routine. Patient reports: Reports appetite normal, Reports pain well controlled : doing well Objective - Vital Signs Latest vital signs: Vital Signs Temp Pulse Pulse Resp BP Pulse Ox 05/27/19 08:00 98.6 F 97 16 90/55 05/27/19 06:09 18 95 05/27/19 04:00 98.3 F 96 18 90/56 97 05/27/19 00:00 98.2 F 111 H 18 106/55 97 05/26/19 20:24 95 05/26/19 20:17 98.4 F 123 H 19 109/56 95 05/26/19 18:03 18 05/26/19 16:17 16 98 05/26/19 16:08 97.8 F 109 H 16 106/63 100 05/26/19 15:51 104 H 05/26/19 15:42 100 05/26/19 15:38 106 H 20 125/84 100 05/26/19 15:31 20 100 05/26/19 15:08 102 H 20 109/71 98 05/26/19 14:53 94 18 103/62 98 05/26/19 14:38 95 16 105/57 98 05/26/19 14:23 97 16 103/56 98 05/26/19 14:08 98.0 F 95 18 103/58 98 05/26/19 12:50 98.2 F 116 H 17 106/59 97 05/26/19 11:31 108 H 05/26/19 11:20 100 05/26/19 10:37 98.2 F 116 H 16 106/59 97 Intake and Output 05/26/19 05/27/19 05/27/19 22:59 06:59 14:59 Intake Total 350 600 Output Total 2000 850 Balance -1650 -250 Intake: Intake, IV Titration 350 Amount ACETAMINOPHEN IV (For NPO 100 ) 1,000 mg In Empty Bag 1 bag @ 400 mls/hr IVPB Q6HR PRN Rx#:[id number] Oxytocin 20 Units/1000 ml 250 Ns 1,000 ml @ Per Protocol IV .Q0M SAMPSON Rx#: [id number] Oral 0 600 Output: Urine 1400 850 Uretheral (Rubio) 1200 Emesis 100 Estimated Blood Loss 500 Other: # Voids 1 - Exam Lungs: bilateral: normal Chest: Normal S1, Normal S2 Extremities: Present: normal Abdomen: Present: normal appearance, soft. Absent: distention, tenderness Incision: Present: normal, dry, intact Uterus: Present: normal, firm - Labs Labs: Abnormal Lab Results - Last 24 Hours (Table) 05/26/19 05/27/19 Range/Units 12:55 06:36 RBC 3.74 L 3.65 L (3.80-5.40) m/uL Hgb 11.3 L 11.2 L (11.4-16.0) gm/dL Hct 33.8 L 33.0 L (34.0-46.0) % RDW 16.1 H (11.5-15.5) % Neutrophils # 8.4 H (1.3-7.7) k/uL Assessment and Plan (1) Normal labor Current Visit: Yes Status: Resolved Code(s): O80 - ENCOUNTER FOR FULL-TERM UNCOMPLICATED DELIVERY; Z37.9 - OUTCOME OF DELIVERY, UNSPECIFIED SNOMED Code(s): 25958390 (2) Previous section Current Visit: Yes Status: Resolved Code(s): Z98.891 - HISTORY OF UTERINE SCAR FROM PREVIOUS SURGERY SNOMED Code(s): 672716522 (3) Status post repeat low transverse section Current Visit: No Status: Acute Code(s): Z98.891 - HISTORY OF UTERINE SCAR FROM PREVIOUS SURGERY SNOMED Code(s): 101261894 (4) Asthma Current Visit: Yes Status: Acute Code(s): J45.909 - UNSPECIFIED ASTHMA, UNCOMPLICATED SNOMED Code(s): 349641131 Plan: 1. Increase ambulation 2. Pain control with by mouth pain meds 3. Regular diet with positive flatus.
[2019-05-27] MEDS: SYMBICORT 160-4.5 MCG INHALER INHALATION SCH ×2 (09:29→17:57)
[2019-05-27] MEDS: ALBUTEROL NEBULIZED 2.5 MG/3 ML INHALATION PRN ×3 (09:29→21:29)
[2019-05-27] MEDS: ACETAMINOPHEN TAB 325 MG TAB PO PRN (13:41)
[2019-05-27] MEDS: diphenhydrAMINE 50 MG CAP PO PRN ×2 (14:50→20:59)
[2019-05-27] MEDS: LACTATED RINGERS 1,000 ML IV SCH ×2 (20:04→20:05)
[2019-05-28] MEDS: diphenhydrAMINE 50 MG CAP PO PRN (02:45)
[2019-05-28] MEDS: HYDROcodone/APAP 7.5-325MG 1 EACH TAB PO PRN ×4 (02:45→21:50)
[2019-05-28] MEDS: SENNOSIDES-DOCUSATE SODIUM 1 EACH TAB PO SCH ×2 (08:48→19:36)
[2019-05-28] MEDS: ALBUTEROL NEBULIZED 2.5 MG/3 ML INHALATION PRN (09:23)
[2019-05-28] MEDS: SYMBICORT 160-4.5 MCG INHALER INHALATION SCH ×2 (09:23→20:39)
[2019-05-28 11:08] LABS: Appearance,Urine Clear (Clear); Bacteria,Urine Rare /hpf; Bilirubin,Urine Negative (Negative); Blood,Urine Small (Negative); Color,Urine Yellow; Glucose,Urine (UA) Negative (Negative); Ketones,Urine Negative (Negative); Leukocyte Esterase,Urine Trace (Negative); Mucus,Urine Few /hpf; Nitrite,Urine Negative (Negative); PH, Urine 6.5 (5.0-8.0); Protein,Urine 1+ (Negative); RBC,Urine 21 /hpf (0-5); Specific Gravity,Urine 1.012 (1.001-1.035); Squamous Epithelial Cell,Urine 2 /hpf (0-4); Urobilinogen,Urine <2.0 mg/dL (<2.0); WBC,Urine 3 /hpf (0-5)
[2019-05-28] MEDS: ALBUTEROL NEBULIZED 2.5 MG/3 ML INHALATION SCH ×3 (12:30→20:37)
--- NOTE | 2019-05-28 14:05 | P.PN ---
Progress Note - Text Progress Note Date: 05/28/19 34-year-old female status post section with Duramorph spinal. Patient is postop day #1. Doing well postoperatively no nausea vomiting, no motor sensory deficits. Tolerating diet and bleeding well. VAS 2-4/10 in severity.
[2019-05-29] MEDS: HYDROcodone/APAP 7.5-325MG 1 EACH TAB PO PRN ×4 (03:54→22:35)
--- NOTE | 2019-05-29 07:34 | P.PNOBGPC ---
Subjective - Subjective Patient reports: Reports appetite normal, Reports voiding normally, Reports pain well controlled, Reports ambulating normally : doing well Objective - Vital Signs Latest vital signs: Vital Signs Temp Pulse Pulse Resp BP Pulse Ox 05/29/19 00:00 98.0 F 80 17 101/62 05/28/19 20:48 96 05/28/19 20:37 98 05/28/19 16:00 98.2 F 87 15 111/76 100 05/28/19 12:40 104 H 05/28/19 12:32 104 H 05/28/19 09:37 100 05/28/19 09:23 104 H 05/28/19 08:00 97.9 F 92 16 107/79 97 - Exam Lungs: bilateral: normal Chest: Normal S1, Normal S2 Extremities: Present: normal Abdomen: Present: normal appearance, soft. Absent: distention, tenderness Incision: Present: normal, dry, intact Uterus: Present: normal, firm - Labs Labs: Abnormal Lab Results - Last 24 Hours (Table) 05/28/19 Range/Units 10:45 Urine Protein 1+ H (Negative) Urine Blood Small H (Negative) Ur Leukocyte Esterase Trace H (Negative) Urine RBC 21 H (0-5) /hpf Urine Bacteria Rare H (None) /hpf Urine Mucus Few H (None) /hpf Microbiology - Last 24 Hours (Table) 05/28/19 10:45 Urine Culture - Preliminary Urine,Catheterized Assessment and Plan Assessment: Post operative day #3. Patient is resting without new complaints. Vital signs are stable and she is afebrile. Uterus is firm nontender and her incision is intact and dry. Patient is ambulating and urinating without difficulty. Patient requests to stay until tomorrow, therefore we will continue routine postoperative care discharge home tomorrow (1) delivery delivered Current Visit: Yes Status: Acute Code(s): O82 - ENCOUNTER FOR DELIVERY WITHOUT INDICATION SNOMED Code(s): 644536987
[2019-05-29] MEDS: SENNOSIDES-DOCUSATE SODIUM 1 EACH TAB PO SCH ×2 (08:00→19:48)
[2019-05-29] MEDS: ALBUTEROL NEBULIZED 2.5 MG/3 ML INHALATION SCH ×4 (08:20→20:04)
[2019-05-29] MEDS: SYMBICORT 160-4.5 MCG INHALER INHALATION SCH ×2 (08:20→20:04)
[2019-05-29] MEDS: ACETAMINOPHEN TAB 325 MG TAB PO PRN (20:03)
[2019-05-30] MEDS: HYDROcodone/APAP 7.5-325MG 1 EACH TAB PO PRN ×2 (04:09→10:34)
--- NOTE | 2019-05-30 07:32 | P.PNOBGPC ---
Subjective - Subjective Patient reports: Reports appetite normal, Reports voiding normally, Reports pain well controlled, Reports ambulating normally : doing well Objective - Vital Signs Latest vital signs: Vital Signs Temp Pulse Pulse Resp BP Pulse Ox 05/30/19 00:00 98.9 F 79 18 104/69 98 05/29/19 20:18 96 05/29/19 20:04 100 05/29/19 16:36 84 05/29/19 16:27 82 05/29/19 16:00 98.2 F 102 H 20 107/77 100 05/29/19 13:06 81 05/29/19 12:56 80 05/29/19 08:34 83 05/29/19 08:20 80 05/29/19 07:56 98.1 F 81 16 101/69 - Exam Lungs: bilateral: normal Chest: Normal S1, Normal S2 Extremities: Present: normal Abdomen: Present: normal appearance, soft. Absent: distention, tenderness Incision: Present: normal, dry, intact Uterus: Present: normal, firm - Labs Labs: Microbiology - Last 24 Hours (Table) 05/28/19 10:45 Urine Culture - Final Urine,Catheterized Assessment and Plan Assessment: Postoperative day #4. Patient is resting without new complaints. Vital signs are stable she is afebrile. Uterus is firm nontender and her incision is intact and dry. My impression this is a normal postoperative course. Plan is to continue routine postoperative care discharge home today (1) delivery delivered Current Visit: Yes Status: Acute Code(s): O82 - ENCOUNTER FOR DELIVERY WITHOUT INDICATION SNOMED Code(s): 585431665
--- NOTE | 2019-05-30 07:39 | P.DS ---
Providers Date of admission: 05/26/19 12:39 Expected date of discharge: 05/30/19 Attending physician: Dian Ricci Primary care physician: Stated None - Discharge Diagnosis(es) (1) delivery delivered Current Visit: Yes Status: Acute Hospital Course: Please see dictated H&P per Dr. Ricci on this patient's admission. Brief summary this is a 34-year-old 3 para 2 female 37-2/7 weeks gestation admitted to labor and delivery in active labor. Patient subsequently underwent a repeat low transverse section for a viable female . Please see dictated delivery note. Postoperatively the patient did well and on postoperative #4 felt be stable for discharge home follow up with Dr. Ricci 1 week for an incision check. Procedures: Repeat low transverse section Patient Condition at Discharge: Good Plan - Discharge Summary New Discharge Prescriptions: New HYDROcodone/APAP 7.5-325MG [[place] 7.5-325] 1 each PO Q4-6H PRN #20 tab PRN Reason: Severe Pain No Action Budesonide-Formot 160-4.5 Mcg [Symbicort 160-4.5 Mcg Inhaler] 2 puff INHALATION RT-BID Albuterol Nebulized [Ventolin Nebulized] 2.5 mg INHALATION RT-QID PRN PRN Reason: Dyspnea Albuterol Sulfate [Ventolin HFA] 1 - 2 puff INHALATION RT-Q6H PRN PRN Reason: Shortness Of Breath Or Wheezing Discharge Medication List Albuterol Nebulized [Ventolin Nebulized] 2.5 mg INHALATION RT-QID PRN 04/08/14 [History] Budesonide-Formot 160-4.5 Mcg [Symbicort 160-4.5 Mcg Inhaler] 2 puff INHALATION RT-BID 04/08/14 [History] Albuterol Sulfate [Ventolin HFA] 1 - 2 puff INHALATION RT-Q6H PRN 04/09/14 [History] HYDROcodone/APAP 7.5-325MG [[place] 7.5-325] 1 each PO Q4-6H PRN #20 tab 05/28/19 [Rx] Follow up Appointment(s)/Referral(s): Dian Ricci DO [Doctor of Osteopathic Medicine] - 06/04/19 1:30 pm (Patient also has a appointment with Dr. Ricci July 07 11:15 AM.) Patient Instructions/Handouts: (DC) Activity/Diet/Wound Care/Special Instructions: No strenuous activity or heavy lifting for 6 weeks. Please call if any fever, chills, excessive vaginal bleeding, and/or abdominal pain. Discharge Disposition: HOME SELF-CARE
[2019-05-30 08:08] VITALS: BP 112/82; PULSE 90; RESP 16; TEMP 98.2
[2019-05-30] MEDS: SENNOSIDES-DOCUSATE SODIUM 1 EACH TAB PO SCH (08:12)
[2019-05-30] MEDS: ACETAMINOPHEN TAB 325 MG TAB PO PRN (08:18)
[2019-05-30] MEDS: ALBUTEROL NEBULIZED 2.5 MG/3 ML INHALATION SCH (09:44)
[2019-05-30] MEDS: SYMBICORT 160-4.5 MCG INHALER INHALATION SCH (10:03)
== END 2019-05-30 11:00 | disposition home or self-care (01) | DRG 788 ==
LOC: FBPOP 10:08 → 4FBP 12:39
PROVIDERS: ADMIT Obstetrics & Gynecology; ATTEND Obstetrics & Gynecology
PROC: 10D00Z1 Extraction of Products of Conception, Low, Open Approach (ICD-10-PCS; principal; 2019-05-26 13:35)
DX: O34.211 Maternal care for low transverse scar from previous cesarean delivery (principal); O99.52 Diseases of the respiratory system complicating childbirth; O99.62 Diseases of the digestive system complicating childbirth; J45.909 Unspecified asthma, uncomplicated; K21.9 Gastro-esophageal reflux disease without esophagitis; Z37.0 Single live birth; Z3A.37 37 weeks gestation of pregnancy; Z79.51 Long term (current) use of inhaled steroids; Z82.49 Family history of ischemic heart disease and other diseases of the circulatory system; Z83.3 Family history of diabetes mellitus; Z82.5 Family history of asthma and other chronic lower respiratory diseases; Z88.5 Allergy status to narcotic agent
CPT/HCPCS: 59025; 81001; 85025; 86850; 86900; 86901; 87086; 94640; 99213

== ENCOUNTER → 2020-07-12 | Outpatient (CLI) | payer OTHER ==
--- NOTE | 2020-07-12 13:07 | US ---
EXAMINATION TYPE: US pelvic complete DATE OF EXAM: 07/12/2020 COMPARISON: NONE CLINICAL HISTORY: R10.32 LLQ pain. LLQ pain TECHNIQUE: Transabdominal (TA). Transabdominal sonographic images of the pelvis were acquired. EXAM MEASUREMENTS: Uterus: 8.2 x 4.0 x 5.9 cm Endometrial Stripe: .5 cm Right Ovary: 2.9 x 1.7 x 1.8 cm Left Ovary: 2.4 x 1.9 x 2.8 cm 1. Uterus: Anteverted wnl 2. Endometrium: wnl 3. Right Ovary: wnl 4. Left Ovary: wnl 5. Bilateral Adnexa: wnl 6. Posterior cul-de-sac: wnl Urinary bladder is sonolucent. Posterior wall is normal. IMPRESSION: 1. Normal pelvic ultrasound
--- NOTE | 2020-07-12 13:08 | US ---
EXAMINATION TYPE: US abdomen complete DATE OF EXAM: 07/12/2020 COMPARISON: NONE CLINICAL HISTORY: R10.32 LLQ pain. LLQ pain EXAM MEASUREMENTS: Liver Length: 16.5 cm normal less than 15.5 cm. Gallbladder Wall: .2 cm CBD: .5 cm Spleen: 9.0 cm Right Kidney: 9.6 x 3.9 x 4.0 cm Left Kidney: 9.2 x 4.8 x 3.6 cm Pancreas: Tail obscured by overlying bowel gas Liver: wnl Gallbladder: wnl Evidence for sonographic Paulino's sign: No CBD: wnl Spleen: wnl Right Kidney: wnl Left Kidney: wnl Upper IVC: wnl Abd Aorta: wnl IMPRESSION: 1 mild hepatomegaly.
== END | disposition home or self-care (01) ==
LOC: RADUSWWP 08:56
PROVIDERS: ATTEND Family Medicine
DX: R16.0 Hepatomegaly, not elsewhere classified (principal); R10.32 Left lower quadrant pain
CPT/HCPCS: 76700; 76856

== ENCOUNTER → 2020-09-19 | Outpatient (CLI) | payer OTHER | END | disposition home or self-care (01) | LOC: LABWHC1 12:22 | PROVIDERS: ATTEND Nurse Practitioner Family | DX: R43.9 Unspecified disturbances of smell and taste (principal) | CPT/HCPCS: U0003; C9803 ==

== ENCOUNTER → 2021-06-20 | Outpatient (CLI) | payer OTHER | END | disposition home or self-care (01) | LOC: LABWHC1 15:22 | PROVIDERS: ATTEND Internal Medicine Critical Care Medicine | DX: J45.50 Severe persistent asthma, uncomplicated (principal) | CPT/HCPCS: 36415; 82785; 85008 ==

== ENCOUNTER 2021-08-07 12:36 | Emergency (ER) | payer OTHER ==
[2021-08-07] MEDS ORDERED: DEXAMETHASONE SOD PHOSPHATE 10 MG/ML 1 ML VIAL IM STA (12:52)
[2021-08-07] MEDS ORDERED: ALBUTEROL NEBULIZED 2.5 MG/3 ML INHALATION STA (12:52)
[2021-08-07] MEDS ORDERED: MAGNESIUM SULFATE-D5W PMX 1 GM in DEXTROSE/WATER 1 100ML.BAG IVPB ONE (13:35)
[2021-08-07] MEDS ORDERED: SODIUM CHLORIDE 0.9% 500 ML 500 ML IV ONE (13:35)
[2021-08-07] MEDS ORDERED: ONDANSETRON 4 MG/2 ML VIAL IVP STA (13:35)
[2021-08-07 13:52] LABS: Basophils % (A) 0 %; Eosinophils # (A) 0.2 k/uL (0-0.7); Eosinophils % (A) 2 %; HCT 39.9 % (34.0-46.0); HGB 13.3 gm/dL (11.4-16.0); Lymphocytes # (A) 2.2 k/uL (1.0-4.8); Lymphocytes % (A) 23 %; MCH 30.2 pg (25.0-35.0); MCHC 33.4 g/dL (31.0-37.0); MCV 90.5 fL (80.0-100.0); Mean Platelet Volume 8.1; Monocytes # (A) 0.3 k/uL (0-1.0); Monocytes % (A) 3 %; Neutrophils # (A) 6.7 k/uL (1.3-7.7); Neutrophils % (A) 70 %; Platelet Count 233 k/uL (150-450); RBC 4.41 m/uL (3.80-5.40); RDW 12.6 % (11.5-15.5); WBC 9.6 k/uL (3.8-10.6)
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
[2021-08-07 14:04] LABS: ALT 14 U/L (4-34); AST 21 U/L (14-36); African American GFR (CKD) >90 (>60 ml/min/1.73 sqM); Albumin 4.3 g/dL (3.5-5.0); Alkaline Phosphatase 60 U/L (38-126); Anion Gap 12 mmol/L; Blood Urea Nitrogen 14 mg/dL (7-17); Calcium 9.2 mg/dL (8.4-10.2); Carbon Dioxide 20 mmol/L (22-30); Chloride 107 mmol/L (98-107); Glucose 142 mg/dL (74-99); Magnesium 1.9 mg/dL (1.6-2.3); Non-African American GFR(CKD) >90 (>60 ml/min/1.73 sqM); Potassium 3.1 mmol/L (3.5-5.1); Sodium 139 mmol/L (137-145); Total Bilirubin 0.3 mg/dL (0.2-1.3); Total Protein 7.2 g/dL (6.3-8.2)
--- NOTE | 2021-08-07 14:20 | XR ---
EXAMINATION TYPE: XR chest 1V portable DATE OF EXAM: 08/07/2021 COMPARISON: 03/15/2018 HISTORY: Chest pain TECHNIQUE: Single frontal view of the chest is obtained. FINDINGS: There is no focal air space opacity, pleural effusion, or pneumothorax seen. The cardiac silhouette size is within normal limits. The osseous structures are intact. IMPRESSION: 1. No acute process.
[2021-08-07 15:41] VITALS: RESP 20
[2021-08-07 15:42] VITALS: BP 108/67; PULSE 108; TEMP 98.7
== END 2021-08-07 15:41 | disposition home or self-care (01) ==
LOC: EC 12:36
DX: J45.901 Unspecified asthma with (acute) exacerbation (principal); Z79.51 Long term (current) use of inhaled steroids
CPT/HCPCS: 36415; 94640; 80053; 83735; 85025; 71045; 99285; 96374; 96375; 96372; J1100; J2405; J3475

== ENCOUNTER → 2021-10-31 | Outpatient (CLI) | payer OTHER ==
--- NOTE | 2021-11-02 12:38 | MM ---
Reason for exam: screening (asymptomatic). Last mammogram was performed 5 years and 6 months ago. Physical Findings: A clinical breast exam by your physician is recommended on an annual basis and results should be correlated with mammographic findings. MG Screening Mammo w CAD Bilateral CC and MLO view(s) were taken. Prior study comparison: May 14, 2016, bilateral MG diagnostic mammo w CAD JOSE LUIS. The breast tissue is heterogeneously dense. This may lower the sensitivity of mammography. Asymmetry inferior right MLO view is unchanged. No significant changes when compared with prior studies. ASSESSMENT: Benign, BI-RAD 2 RECOMMENDATION: Routine screening mammogram of both breasts at age 39. Patient should continue monthly self breast exams. A negative report should not preclude additional follow up of suspicious palpable abnormalities.
== END | disposition home or self-care (01) ==
LOC: RADMAMWWP 16:23
PROVIDERS: ATTEND Obstetrics & Gynecology
DX: Z53.9 Procedure and treatment not carried out, unspecified reason (principal)
CPT/HCPCS: 77067